=== PATIENT | male | born 1980 ===

== ENCOUNTER → 2020-08-24 07:41 | Outpatient (BNVA) | payer SELFPAY | PROVIDERS: Visit Provider Internal Medicine | DX: Z76.89 Persons encountering health services in other specified circumstances (principal) ==

== ENCOUNTER 2022-09-16 09:29 | Outpatient (REF) | payer OTHER, SELFPAY ==
--- NOTE | ~2022-09-16 | XR_ITS ---
EXAMINATION: XR ELBOW, LEFT CLINICAL INFORMATION: Sprain COMPARISON: None TECHNIQUE: AP, lateral, and oblique views of the left elbow. FINDINGS: Small osteophyte at the triceps tendon insertion to the olecranon. Small soft tissue calcification adjacent to the lateral humeral epicondyle. The bones and soft tissues are otherwise normal. No fracture or joint effusion. Alignment is anatomic. Joint spaces are maintained. XR/XR elbow LT min 3V IMPRESSION: No acute fracture or dislocation. Small osteophyte at the triceps tendon insertion to the olecranon and soft tissue calcification adjacent to the lateral humeral epicondyle..
== END 2022-09-16 09:30 | disposition home or self-care (01) ==
LOC: HO.HMGCX 09:29
PROVIDERS: PCP Physician Assistant; Visit Provider Internal Medicine
DX: S53.402A Unspecified sprain of left elbow, initial encounter (principal); X58.XXXA Exposure to other specified factors, initial encounter; Y93.9 Activity, unspecified; Y92.9 Unspecified place or not applicable; Y99.8 Other external cause status
CPT/HCPCS: 73080

== ENCOUNTER 2023-07-27 10:41 | Outpatient (AMB) | payer OTHER, SELFPAY ==
[2023-07-27 10:57] VITALS: BP 132/78; PULSE 66; O2SAT 96; BMI 38.0
--- NOTE | 2023-07-27 10:57 | MHC.PC.OV ---
Vital Signs 07/27/23 10:57 Height 6 ft Weight 280 lb 5 oz BMI 38.0 BP 132/78 Blood Pressure Location Lt brachial Position Sitting Pulse 66 Pulse Source Pulse Oximeter Pulse Oximetry (%) 96 Oxygen Delivery Method Room Air Intake Visit Reasons: Med Review Intake Note: Pt is here for med review and pt want to discuss elbow issues. Lead Javascript Developer Required: No Accompanied by: Self / Same As Patient Allergies Sulfa (Sulfonamide Antibiotics) [SULFA (SULFONAMIDE ANTIBIOTICS)] Allergy (Unknown, Verified 07/27/23 11:22) UNKNOWN, hives Medication List - Last Reconciled 07/27/23 by Ben Ashley PA-C blood pressure test kit-large As directed meloxicam 15 mg PO DAILY pantoprazole 40 mg PO DAILY Tobacco use date assessed: 07/27/23 Dental Screening Dental Screen Date: 07/27/23 Did you have a dental visit in the last 12 months?: Yes Did you have a dental problem in the last 6 months where you did not have access to dental care?: No Was dental information given to patient?: Patient has dentist HPI Med Review HPI Details Patient is a 43 male here today for follow-up visit. Patient has a past medical history significant for GERD, hypertension, obesity. Has been having issues with his elbows and has been seen by urgent care and gotten x-rays without any significant findings in his elbow x-rays. 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 He has proceeded to follow-up with orthopedics and has gotten a cortisone injection which has reduced his pain in his elbow significantly. .. Obesity: Has noticed significant amount weight gain since last office visit. Reorts this is due to wearing his steel-toed boots today. He reports he has been watching his diet and has actually lost weight since last office visit. He reports his home weight is 237 lb .. GERD: Continues on pantoprazole 40 mg needs a refill. He has changed his diet significantly and wonders if he can reduce his dose of this medication and try to get off of PPI therapy. [facility] Medical History (Updated 07/28/23 @ 07:31 by Ben Ashley PA-C) Sprain of left elbow Surgical History H/O vasectomy Family History Sister Glioblastoma Social History Housing: House Alcohol intake: current Alcohol intake frequency: a few times a week Alcohol type: beer and wine Patient Tobacco Use Status: Never used Tobacco Tobacco use type: Cigarette e-Cigarette/Vaping Use: Never Used Second Hand Smoke Exposure: No service: No Current occupational status: employed Current occupation: [employer] Cognitive needs: No Hearing needs: No Vision needs: No Questionnaire PHQ-9 Over the last 2 weeks, how often have you been bothered by any of the following problems? 1. Little interest or pleasure in doing things: not at all 2. Feeling down, depressed, or hopeless: not at all 3. Trouble falling or staying asleep, or sleeping too much: not at all 4. Feeling tired or having little energy: not at all 5. Poor appetite or overeating: not at all 6. Feeling bad about yourself - or that you are a failure or have let yourself or your family down: not at all 7. Trouble concentrating on things, such as reading the newspaper or watching television: not at all 8. Moving or speaking so slowly that other people could have noticed. Or the opposite - being so fidgety or restless that you have been moving around a lot more than usual: not at all 9. Thoughts that you would be better off or of hurting yourself in some way: not at all Total score: 0 Depression Screening Interpretation: Negative Depression Screening Done: Yes 38136 - PHQ-9 Billing: Yes Source: Developed by Drs. Felipe Coleman, Clarissa Palacios, Celestino Michael and colleagues, with an educational mary from [employer]. Thrive Questionnaire Date Thrive assessed: 07/27/23 I am a: Patient What is your living situation today?: I have a steady place to live Within the past 12 months, did the food you bought not last and you didn't have the money to get more?: Never true Within the past 12 months, did you worry whether your food would run out before you got money to buy more?: Never true Do you have trouble paying for medicines?: No Do you have trouble getting transportation to medical appointments?: No Do you have trouble paying your heating and electricity bill?: No Do you have trouble taking care of your child, family member or friend?: No Do you have trouble with day-to-day activities such as bathing, preparing meals, shopping, managing finances, etc.?: No Are you currently unemployed and looking for a job?: No Are you interested in more education?: No Please select the resources that you would like help with: None Currently or been in a relationship where the following occur: no concerns reported AUDIT C Alcohol Use Questionnaire (AUDIT-C) 1. How often do you have a drink containing alcohol?: Monthly or less 2. How many drinks containing alcohol do you have on a typical day when you are drinking?: 3 or 4 3. How often do you have six or more drinks on one occasion?: Never Total Score: 2 Score Reviewed/Action Taken: Yes DEYVI-7 AMB Questionnaire DEYVI-7 Date DEYVI - 7 assessed: 07/27/23 Feeling nervous, anxious, or on edge: 0 = Not at all Not being able to stop or control worryin = Not at all Worrying too much about different things: 0 = Not at all Trouble relaxin = Not at all Being so restless that it is hard to sit still: 0 = Not at all Becoming easily annoyed or irritable: 0 = Not at all Feeling afraid as if something awful might happen: 0 = Not at all Total DEYVI-7 score (0-4 normal; 5-9 mild; 10-14 moderate; 15-21 severe): 0 Source: Developed by Drs. Felipe Coleman, Clarissa Palacios, Celestino Michael and colleagues, with an educational mary from [employer]. DEYVI-7 Assessment Billing DEYVI-7 Assessment Tool: DEYVI-7 Assessment 87804 Review of Systems Const Denies headache(s) Eyes Denies loss of vision ENT Denies vertigo, Denies dizziness, Denies headache(s) and Denies sore throat Card Denies chest pain, Denies leg edema and Denies lightheadedness Resp Denies cough, Denies hemoptysis and Denies wheezing GI Denies abdominal pain, Denies melena, Denies constipation, Denies diarrhea and Denies vomiting Denies dysuria, Denies urinary frequency and Denies urinary urgency Musc Denies arthralgias, Denies joint swelling, Denies numbness and Denies tingling Neuro Denies Abnormal speech present, Denies behavioral changes, Denies vertigo, Denies dizziness, Denies headache(s), Denies loss of vision, Denies memory loss, Denies numbness and Denies tingling Psych Denies anxiety, Denies behavioral changes, Denies depression, Denies memory loss and Denies panic attacks Aron/Lymph Denies easy bleeding and Denies easy bruising Aller/Immun Denies wheezing Physical exam (Primary Care) Vital Signs: Last Vital Signs Pulse 66 07/27/23 10:57 BP 132/78 07/27/23 10:57 Pulse Ox 96 07/27/23 10:57 Oxygen Delivery Method Room Air 07/27/23 10:57 BMI result Body Mass Index 38.0 BMI Assessment/Plan discussion: High Tobacco/Smoking Status: Tobacco use Status Tobacco use date assessed 07/27/23 07/27/23 11:21 Patient Tobacco Use Status Never used Tobacco 07/27/23 11:05 Tobacco use type Cigarette 07/27/23 11:05 e-Cigarette/Vaping Use Never Used 07/27/23 11:05 PHQ-9: PHQ-9 Score PHQ-9: Total score 0 07/27/23 11:30 Depression Screening Interpretation: Negative Thrive Assessment: Date of Thrive Assessment Date Thrive assessed 07/27/23 07/27/23 11:21 Currently or been in a relationship where the following occur: no concerns reported Const Other: Obese General: healthy appearing, no acute distress, alert and awake Nutritional Appearance: well nourished Orientation/consciousness: oriented to person, oriented to place and oriented to time [facility] Ears: TM's normal bilaterally General nose exam: Normal nasal mucous membranes and turbinates present Eyes Conjunctivae: conjunctivae normal Sclerae: sclerae normal Pupils: Equal, round and reactive pupils present Neck Neck: Yes no lymphadenopathy and Yes no JVD Thyroid: Thyroid normal Carotids: no bruits Resp Effort & Inspection: normal respiratory effort and not tachypneic Auscultation: no crackles, no rales, no rhonchi and no wheezes Cardio Rate: regular rate Rhythm: regular rhythm Heart sounds: no murmurs and normal S1 and S2 GI Palpation (GI): Soft to palpation, nontender, no hepatomegaly and no splenomegaly Auscultation: normal bowel sounds Skin General skin exam: no rashes or lesions noted and dry skin Neuro General: oriented to person, oriented to place and oriented to time Cranial nerves: Yes Equal, round and reactive pupils present Speech: No Abnormal speech present Gait exam (Neuro): Normal gait present Motor exam (neuro): no tremor noted Extrem Other: FULL RANGE OF MOTION OF THE LEFT ELBOW, OCCASIONALLY DOES HAVE CREPITUS WITH FLEXION OF THE ELBOW. Right upper extremity: full ROM Left upper extremity: full ROM Right lower extremity: full ROM; no edema Left lower extremity: full ROM; no edema Psych Mental Status: mental status grossly normal Speech and movement: Normal speech and movement present Affect: normal affect Attitude: cooperative Thought process: Normal thought process present Assessment and Plan Assessment & Plan (1) Tendinitis: Code(s): M77.9 - Enthesopathy, unspecified Plan: Patient's signs and symptoms are most consistent with a tendinitis of the left elbow. Has followed up with Orthopedics and received a cortisone injection which significantly reduces pain. 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 (2) GERD (gastroesophageal reflux disease): Code(s): K21.9 - Gastro-esophageal reflux disease without esophagitis Qualifiers: Esophagitis presence: without esophagitis Qualified Code(s): K21.9 - Gastro-esophageal reflux disease without esophagitis Plan: As per HPI he is interested in reducing his dose of PPI therapy and eventually getting off of this medication. We did discuss the long-term affects of chronic PPI use. Would like to continue to watch his diet to control his GERD symptoms. (3) HTN (hypertension): Code(s): I10 - Essential (primary) hypertension Qualifiers: Hypertension type: primary hypertension Qualified Code(s): I10 - Essential (primary) hypertension Plan: Patient has a history of hypertension though has been able to manage with lifestyle. Today's blood pressure acceptable in office. Will continue to monitor blood pressure with goal blood pressure to remain below 140/90 (4) Obese: Code(s): E66.9 - Obesity, unspecified Qualifiers: Obesity type: due to excess calories Obesity classification: adult class 1 (BMI 30 - 34.9) Serious obesity comorbidity presence: without serious comorbidity Body mass index: BMI 32.0-32.9 Qualified Code(s): E66.09 - Other obesity due to excess calories; Z68.32 - Body mass index [BMI] 32.0-32.9, adult Plan: Patient does understand his BMI is over 30 will continue working on being more physically active and adapting to better eating habits to reduce his weight. Orders: Orders Microalbumin, Random (w Creat) 07/27/23 I10 - Essential (primary) hypertension Comprehensive [place]. Panel Fast 07/27/23 Z13.1 - Encounter for screening for diabetes mellitus Medications: New pantoprazole 20 mg PO DAILY 90 days 90 tabs 1RF K21.9 - Gastro-esophageal reflux disease without esophagitis Discontinued meloxicam Discontinued Reason: Doctor's Order 15 mg PO DAILY 14 tabs 0RF pantoprazole Discontinued Reason: Doctor's Order 40 mg PO DAILY 90 tabs 2RF K21.9 - Gastro-esophageal reflux disease without esophagitis Coding Level of Care Code Est Pt Level 4 (81045) Diagnoses Tendinitis M77.9 Gastroesophageal reflux disease without esophagitis K21.9 Esophagitis presence: without esophagitis Primary hypertension I10 Hypertension type: primary hypertension Class 1 obesity due to excess calories without serious comorbidity with body mass index (BMI) of 32.0 to 32.9 in adult E66.09; Z68.32 Obesity type: due to excess calories Obesity classification: adult class 1 (BMI 30 - 34.9) Serious obesity comorbidity presence: without serious comorbidity Body mass index: BMI 32.0-32.9 Additional Codes DEYVI-7 Assessment Billing - DEYVI-7 Assessment Tool: DEYVI-7 Assessment 41408 ([id number])
== END 2023-07-27 11:40 | disposition home or self-care (01) ==
PROVIDERS: PCP Physician Assistant; Visit Provider Physician Assistant
DX: M77.9 Enthesopathy, unspecified (principal); K21.9 Gastro-esophageal reflux disease without esophagitis; I10 Essential (primary) hypertension; E66.09 Other obesity due to excess calories; Z68.32 Body mass index [BMI] 32.0-32.9, adult
CPT/HCPCS: 99214

== ENCOUNTER 2023-07-28 07:24 | Outpatient (REF) | payer OTHER, SELFPAY | END 2023-07-28 07:25 | disposition home or self-care (01) | LOC: HO.LAB 07:24 | PROVIDERS: PCP Physician Assistant; Visit Provider Physician Assistant | DX: Z13.89 Encounter for screening for other disorder (principal) ==

== ENCOUNTER 2023-10-02 06:17 | Outpatient (REF) | payer OTHER, SELFPAY ==
[2023-10-02 07:37] LABS: Alanine Aminotransferase 78 U/L (0-40); Albumin Level 4.6 g/dL (3.5-5.0); Alkaline Phosphatase 51 U/L (39-117); Anion Gap 12 (12-20); Aspartate Amino Transferase 44 U/L (5-37); Bilirubin Total 0.6 mg/dL (0.0-1.0); Blood Urea Nitrogen 21 mg/dL (9-16); Calcium 10.1 mg/dL (8.4-10.2); Carbon Dioxide 26 mmol/L (22-29); Chloride 107 mmol/L (96-108); Estimated Glomerular Filt Rate > 60; Glucose Fasting 99 mg/dL (60-99); Potassium 4.4 mmol/L (3.3-5.1); Sodium 141 mmol/L (135-145)
[2023-10-02 09:26] LABS: Creatinine Urine 198.78 mg/dL; Microalbum/Creatinine Ratio Ur 6.5 ug/mg cr (<30)
== END 2023-10-02 06:18 | disposition home or self-care (01) ==
LOC: HO.LAB 06:17
PROVIDERS: PCP Physician Assistant; Visit Provider Physician Assistant
DX: Z13.1 Encounter for screening for diabetes mellitus (principal); I10 Essential (primary) hypertension
CPT/HCPCS: 36415; 80053; 82043; 82570

== ENCOUNTER 2023-10-16 14:50 | Outpatient (REF) | payer OTHER, SELFPAY ==
--- NOTE | ~2023-10-16 | US_ITS ---
EXAMINATION: US ABDOMEN LIMITED CLINICAL INFORMATION: Abnormal levels of other serum enzymes. COMPARISON: Ultrasound abdomen complete 08/27/2015. TECHNIQUE: Real-time imaging of the right upper quadrant abdominal viscera. FINDINGS: PANCREAS: Limited visualization. LIVER: The liver is enlarged. The liver contour is normal. There is diffuse increased liver parenchymal echogenicity, consistent with hepatic steatosis. No definite focal lesion is seen, but evaluation is limited due to poor sound beam penetration through the coarse echogenic liver parenchyma. There is no intrahepatic biliary duct dilatation seen. GALLBLADDER: The gallbladder is physiologically distended without evidence of stones, sludge, polyps, wall thickening or pericholecystic fluid. COMMON BILE DUCT: Normal in caliber measuring 0.4 cm in diameter. RIGHT KIDNEY: No hydronephrosis. No renal calculi or focal parenchymal lesions. The kidney measures 12.1 cm in maximum dimension. FREE FLUID: None. US/US abdomen limited IMPRESSION: Hepatomegaly and hepatic steatosis.
== END 2023-10-16 14:51 | disposition home or self-care (01) ==
LOC: HO.US 14:50
PROVIDERS: PCP Physician Assistant; Visit Provider Physician Assistant
DX: R74.8 Abnormal levels of other serum enzymes (principal)
CPT/HCPCS: 76705

== ENCOUNTER 2023-11-02 15:02 | Outpatient (AMB) | payer OTHER, SELFPAY ==
[2023-11-02 15:06] VITALS: BP 152/88; PULSE 55; O2SAT 98; BMI 33.2
--- NOTE | 2023-11-02 15:06 | MHC.PC.OV ---
Vital Signs 11/02/23 15:06 Height 6 ft Weight 245 lb BMI 33.2 BP 152/88 H Blood Pressure Location Lt brachial Position Sitting Pulse 55 Pulse Source Pulse Oximeter Pulse Oximetry (%) 98 Oxygen Delivery Method Room Air Intake Visit Reasons: pe Intake Note: Patient is here today for a physical. Reel Slitter Required: No Accompanied by: Self / Same As Patient Allergies Sulfa (Sulfonamide Antibiotics) [SULFA (SULFONAMIDE ANTIBIOTICS)] Allergy (Unknown, Verified 11/02/23 15:34) UNKNOWN, hives Medication List - Last Reconciled 11/02/23 by Ben Ashley PA-C blood pressure test kit-large As directed pantoprazole 20 mg PO DAILY 90 days Tobacco use date assessed: 11/02/23 Dental Screening Dental Screen Date: 11/02/23 Did you have a dental visit in the last 12 months?: Yes Did you have a dental problem in the last 6 months where you did not have access to dental care?: No Was dental information given to patient?: Patient has dentist HPI pe HPI Details Patient is a 43 male here today for a routine annual physical. Patient has a past medical history significant for GERD, hypertension, obesity. .. Obesity: BMI remains above 30, did note elevated liver enzymes does admit to some increased alcohol intake over the last few years. He has started a new diet and has lost some weight since last office visit. Recent ultrasound of abdomen does show signs symptoms consistent with fatty liver. .. GERD: Continues on pantoprazole 20 mg. He has changed his diet significantly and wonders if he can reduce his dose of this medication and try to get off of PPI therapy. Laboratory Tests 10/02/23 10/02/23 06:34 06:36 BUN 21 H AST 44 H ALT 78 H Urine Microalbumin 13.0 PFSH Medical History Sprain of left elbow Surgical History H/O vasectomy Family History Sister Glioblastoma Social History (Updated 11/02/23 @ 15:42 by Ben Ashley PA-C) Housing: House Alcohol intake: current Alcohol intake frequency: a few times a month Alcohol type: beer and wine Patient Tobacco Use Status: Never used Tobacco Tobacco use type: Cigarette e-Cigarette/Vaping Use: Never Used Second Hand Smoke Exposure: No service: No Current occupational status: employed Current occupation: [employer] Cognitive needs: No Hearing needs: No Vision needs: No Questionnaire PHQ-9 Over the last 2 weeks, how often have you been bothered by any of the following problems? 1. Little interest or pleasure in doing things: not at all 2. Feeling down, depressed, or hopeless: not at all 3. Trouble falling or staying asleep, or sleeping too much: not at all 4. Feeling tired or having little energy: not at all 5. Poor appetite or overeating: not at all 6. Feeling bad about yourself - or that you are a failure or have let yourself or your family down: not at all 7. Trouble concentrating on things, such as reading the newspaper or watching television: not at all 8. Moving or speaking so slowly that other people could have noticed. Or the opposite - being so fidgety or restless that you have been moving around a lot more than usual: not at all 9. Thoughts that you would be better off or of hurting yourself in some way: not at all Total score: 0 Depression Screening Interpretation: Negative Depression Screening Done: Yes 00467 - PHQ-9 Billing: Yes Source: Developed by Drs. Felipe Coleman, Clarissa Palacios, Celestino Michael and colleagues, with an educational mary from [employer]. Thrive Questionnaire Date Thrive assessed: 11/02/23 I am a: Patient What is your living situation today?: I have a steady place to live Within the past 12 months, did the food you bought not last and you didn't have the money to get more?: Never true Within the past 12 months, did you worry whether your food would run out before you got money to buy more?: Never true Do you have trouble paying for medicines?: No Do you have trouble getting transportation to medical appointments?: No Do you have trouble paying your heating and electricity bill?: No Do you have trouble taking care of your child, family member or friend?: No Do you have trouble with day-to-day activities such as bathing, preparing meals, shopping, managing finances, etc.?: No Are you currently unemployed and looking for a job?: No Are you interested in more education?: No Please select the resources that you would like help with: None Currently or been in a relationship where the following occur: no concerns reported THRIVE Score: 0 AUDIT C Alcohol Use Questionnaire (AUDIT-C) 1. How often do you have a drink containing alcohol?: Monthly or less 2. How many drinks containing alcohol do you have on a typical day when you are drinking?: 3 or 4 3. How often do you have six or more drinks on one occasion?: Never Total Score: 2 Score Reviewed/Action Taken: Yes DEYVI-7 AMB Questionnaire DEYVI-7 Date DEYVI - 7 assessed: 11/02/23 Feeling nervous, anxious, or on edge: 0 = Not at all Not being able to stop or control worryin = Not at all Worrying too much about different things: 0 = Not at all Trouble relaxin = Not at all Being so restless that it is hard to sit still: 0 = Not at all Becoming easily annoyed or irritable: 0 = Not at all Feeling afraid as if something awful might happen: 0 = Not at all Total DEYVI-7 score (0-4 normal; 5-9 mild; 10-14 moderate; 15-21 severe): 0 Source: Developed by Drs. Felipe Coleman, Clarissa Palacios, Celestino Michael and colleagues, with an educational mary from [employer]. DEYVI-7 Assessment Billing DEYVI-7 Assessment Tool: DEYVI-7 Assessment 39203 Review of Systems Const Denies body aches, Denies chills, Denies excessive sweating, Denies fatigue, Denies fever(s) and Denies headache(s) Eyes Denies blurry vision ENT Denies dysphagia, Denies vertigo, Denies dizziness, Denies headache(s), Denies hearing loss and Denies tinnitus Card Denies chest pain, Denies chest pain with activity, Denies syncope, Denies irregular heart rhythm and Denies dyspnea Resp Denies chest congestion, Denies cough, Denies hemoptysis, Denies dyspnea and Denies wheezing GI Denies abdominal pain, Denies melena, Denies hematochezia, Denies coffee ground emesis, Denies dysphagia, Denies diarrhea, Denies nausea and Denies vomiting Denies difficulty urinating, Denies dysuria, Denies urinary frequency, Denies urinary hesitancy and Denies urinary urgency Musc Denies arthralgias, Denies limited range of motion, Denies muscle cramps and Denies muscle weakness Skin/Breast Denies rash and Denies skin ulcer Neuro Denies Abnormal speech present, Denies confusion, Denies vertigo, Denies dizziness, Denies syncope, Denies headache(s), Denies memory loss and Denies seizure-like activity Psych Denies anxiety, Denies confusion, Denies depression, Denies memory loss, Denies panic attacks and Denies paranoia Endo Denies excessive sweating, Denies fatigue, Denies flushing, Denies polydipsia and Denies polyuria Aller/Immun Denies wheezing Physical exam (Primary Care) Vital Signs: Last Vital Signs Pulse 55 11/02/23 15:06 BP 152/88 H 11/02/23 15:06 Pulse Ox 98 11/02/23 15:06 Oxygen Delivery Method Room Air 11/02/23 15:06 BMI result Body Mass Index 33.2 BMI Assessment/Plan discussion: High Tobacco/Smoking Status: Tobacco use Status Tobacco use date assessed 11/02/23 11/02/23 15:17 Patient Tobacco Use Status Never used Tobacco 11/02/23 15:42 Tobacco use type Cigarette 11/02/23 15:42 e-Cigarette/Vaping Use Never Used 11/02/23 15:42 PHQ-9: PHQ-9 Score PHQ-9: Total score 0 11/02/23 15:38 Depression Screening Interpretation: Negative Thrive Assessment: Date of Thrive Assessment Date Thrive assessed 11/02/23 11/02/23 15:17 Currently or been in a relationship where the following occur: no concerns reported Const Other: Obese General: cooperative, comfortable, no acute distress, alert and awake; No confusion Orientation/consciousness: oriented to person, oriented to place, patient oriented x3 and No confusion HENMT Head: Yes normocephalic Ears: external ears normal and TM's normal bilaterally Face and sinus: No sinus tenderness Mouth: Normal oral and palatal mucosa present and tongue normal Teeth and gingiva: dentition normal and gingiva normal Throat: Yes posterior oropharynx normal, Yes tonsils normal and Yes uvula midline Eyes Conjunctivae: conjunctivae normal Sclerae: sclerae normal Pupils: Equal, round and reactive pupils present EOM: EOMs intact bilaterally Direct Ophthalmoscopy: No no photophobia Neck Neck: Yes no lymphadenopathy, No tender and Yes no JVD Thyroid: Thyroid normal Carotids: no bruits Chest Chest palpation & inspection: no tenderness Resp Effort & Inspection: normal respiratory effort, no audible wheezes, not labored and no stridor Auscultation: no crackles, no rales, no rhonchi and no wheezes Cardio Jugular venous distension: no JVD Rate: regular rate, not bradycardic and not tachycardic Rhythm: regular rhythm Bruits: no carotid bruits Peripheral pulses: Peripheral pulses 2+ throughout GI Inspection: Yes normal to inspection, No abdominal wall ecchymosis and No visible herniation Palpation (GI): Soft to palpation, nontender, no guarding, not rigid and No hepatosplenomegaly present Auscultation: normoactive bowel sounds General: Yes no CVA tenderness Back/Spine/Pelvis Back: no CVA tenderness and No back tenderness Cervical Spine: cervical ROM normal Thoracic/Lumbar Spine: thoracic and lumbar spine normal to inspection, straight leg raise negative bilaterally, No thoraco-lumbar ROM limited and No lumbar spinal tenderness Skin Lesions: no lesions Rashes: no rashes Wounds: no wounds Neuro General: oriented to person, oriented to place, patient oriented x3, CN's II-XI intact bilaterally and No confusion Cranial nerves: Yes Equal, round and reactive pupils present and Yes Normal accommodation reflex present Cognition (Neuro): normal cognition Speech: No Abnormal speech present Gait exam (Neuro): Normal gait present Motor exam (neuro): 5/5 motor strength present throughout Extrem Right upper extremity: full ROM; no cyanosis Left upper extremity: full ROM; no cyanosis Right lower extremity: no edema Left lower extremity: no edema Psych Appearance: grossly normal Mental Status: mental status grossly normal Affect: normal affect Attitude: cooperative Thought process: Normal thought process present Assessment and Plan Assessment & Plan (1) Annual physical exam: Code(s): Z00.00 - Encounter for general adult medical examination without abnormal findings (2) GERD (gastroesophageal reflux disease): Code(s): K21.9 - Gastro-esophageal reflux disease without esophagitis Qualifiers: Esophagitis presence: without esophagitis Qualified Code(s): K21.9 - Gastro-esophageal reflux disease without esophagitis Plan: Patient continues on daily use of pantoprazole, he denies any GERD symptoms. (3) Elevated blood pressure reading: Code(s): R03.0 - Elevated blood-pressure reading, without diagnosis of hypertension Plan: Noted elevated blood pressure reading today in office. Will consider starting blood pressure medication. Advised to monitor blood pressure when possible. Will commence lifestyle modifications to help lose weight and anticipate lower his blood pressure. (4) Obese: Code(s): E66.9 - Obesity, unspecified Qualifiers: Body mass index: BMI 32.0-32.9 Obesity classification: adult class 1 (BMI 30 - 34.9) Obesity type: due to excess calories Serious obesity comorbidity presence: without serious comorbidity Qualified Code(s): E66.09 - Other obesity due to excess calories; Z68.32 - Body mass index [BMI] 32.0-32.9, adult Plan: Patient does understand his BMI is over 30 and has been working on dietary modifications to reduce his weight. (5) Nonalcoholic fatty liver disease: Code(s): K76.0 - Fatty (change of) liver, not elsewhere classified Plan: Recent abdominal ultrasound showing consistent evidence fatty liver disease. Does elevated liver enzymes on most recent labs. He will implement dietary modifications and increase his physical activity to lose weight. Will recheck his liver enzymes Orders: Orders Liver Panel 8 Weeks R74.8 - Abnormal levels of other serum enzymes Comprehensive [place]. Panel Fast 11 Months Z13.1 - Encounter for screening for diabetes mellitus Complete Blood Count no Diff 11 Months K21.9 - Gastro-esophageal reflux disease without esophagitis Coding Level of Care Code Est Pt Prev Care 40-64y(93960) Diagnoses Annual physical exam Z00.00 Gastroesophageal reflux disease without esophagitis K21.9 Esophagitis presence: without esophagitis Elevated blood pressure reading R03.0 Class 1 obesity due to excess calories without serious comorbidity with body mass index (BMI) of 32.0 to 32.9 in adult E66.09; Z68.32 Body mass index: BMI 32.0-32.9 Obesity classification: adult class 1 (BMI 30 - 34.9) Obesity type: due to excess calories Serious obesity comorbidity presence: without serious comorbidity Nonalcoholic fatty liver disease K76.0 Additional Codes DEYVI-7 Assessment Billing - DEYVI-7 Assessment Tool: DEYVI-7 Assessment 06021 ([id number])
== END 2023-11-02 15:55 | disposition home or self-care (01) ==
PROVIDERS: PCP Physician Assistant; Visit Provider Physician Assistant
DX: Z00.00 Encounter for general adult medical examination without abnormal findings (principal); K21.9 Gastro-esophageal reflux disease without esophagitis; R03.0 Elevated blood-pressure reading, without diagnosis of hypertension; E66.09 Other obesity due to excess calories; Z68.32 Body mass index [BMI] 32.0-32.9, adult; K76.0 Fatty (change of) liver, not elsewhere classified
CPT/HCPCS: 99396

== ENCOUNTER 2024-03-16 06:33 | Outpatient (REF) | payer OTHER, SELFPAY ==
[2024-03-16 07:50] LABS: Alanine Aminotransferase 39 U/L (0-40); Albumin Level 4.6 g/dL (3.5-5.0); Alkaline Phosphatase 48 U/L (39-117); Aspartate Amino Transferase 31 U/L (5-37); Bilirubin Direct 0.2 mg/dL (0.0-0.5); Bilirubin Total 0.7 mg/dL (0.0-1.0); Total Protein 7.8 g/dL (6.5-8.0)
== END 2024-03-16 06:34 | disposition home or self-care (01) ==
LOC: HO.LAB 06:33
PROVIDERS: PCP Physician Assistant; Visit Provider Physician Assistant
DX: R74.8 Abnormal levels of other serum enzymes (principal)
CPT/HCPCS: 36415; 80076

== ENCOUNTER 2024-03-20 18:17 | Emergency (ER) | payer OTHER, SELFPAY ==
[2024-03-20 18:25] VITALS: BP 150/81; PULSE 68; RESP 18; TEMP 36.8; O2SAT 98; BMI 32.3
--- NOTE | 2024-03-20 19:54 | ED_ITS ---
HPI - Burn/Smoke Inhalation General Chief complaint: Burn/Smoke Inhalation Stated complaint: burned left hand on hot plate Time Seen by Provider: 03/20/24 19:46 Source: patient Mode of arrival: ambulatory Limitations: no limitations History of Present Illness HPI Narrative: 44 yo male healthy, right hand dominant here with complaints of burn to left hand (1st-3rd digits). Patient reports that he was cooking on the grill any had food in a metal pole and a when he grabbed it he noticed it was very hot causing a burn to his left hand. Applied aloe and took ibuprofen but came to the emergency room. Denies numbness, tingling, redness, fevers, chills. Related Data Previous Rx's ?Medication ?Instructions ?Recorded blood pressure test kit-large #1 ea 09/24/21 pantoprazole 20 mg tablet,delayed 20 mg PO DAILY 90 days #90 tabs 10/09/23 release azithromycin 250 mg tablet See Rx Instructions PO .COMPLEX #6 12/15/23 tabs oxycodone 5 mg tablet 5 mg PO Q8H PRN pain #6 tabs 03/20/24 Allergies Allergy/AdvReac Type Severity Reaction Status Date / Time Sulfa (Sulfonamide Allergy Unknown UNKNOWN, Verified 03/20/24 18:27 Antibiotics) hives [SULFA (SULFONAMIDE ANTIBIOTICS)] Review of Systems Review of Systems: Yes all other systems are reviewed and are negative Constitutional: Constitutional: Reports no additional constitutional complaints, Denies body ache(s), Denies chills, Denies fever(s), Denies headache(s) and Denies weakness Eyes: Eyes: Reports no additional eye complaints and Denies change in vision ENT: Reports system reviewed and no additional complaints, except as documented, Denies dizziness, Denies headache(s), Denies nasal congestion, Denies nasal discharge and Denies neck pain Cardiovascular: Cardiovascular: Reports no additional cardiovascular complaints, Denies chest pain, Denies leg edema and Denies dyspnea Respiratory: Respiratory: Reports no additional respiratory complaints, Denies cough and Denies dyspnea Gastrointestinal: Gastrointestinal: Reports no additional gastrointestinal complaints, Denies abdominal pain, Denies diarrhea, Denies nausea and Denies vomiting Genitourinary: Genitourinary: Denies urinary incontinence Musculoskeletal: Musculoskeletal: Reports no additional musculoskeletal complaints, Denies back pain, Denies arthralgias, Denies joint swelling, Denies neck pain, Denies numbness and Denies tingling Integumentary/Breasts: Skin/Breast: Reports system reviewed and no additional complaints, except as docu and Denies rash Neurologic: Reports system reviewed and no additional complaints, except as documented, Denies Abnormal speech present, Denies dizziness, Denies headache(s), Denies numbness, Denies tingling and Denies weakness PMF Past Medical History Attestation statement: The following information was validated with the patient. Source: old records reviewed and nursing notes reviewed Medical History Sprain of left elbow Surgical History H/O vasectomy Family History Family History Sister Glioblastoma Social History Social History Housing: House Alcohol intake: current Alcohol intake frequency: a few times a month Alcohol type: beer and wine Patient Tobacco Use Status: Never used Tobacco Tobacco use type: Cigarette e-Cigarette/Vaping Use: Never Used Second Hand Smoke Exposure: No Advance Directives: No Advance Directives Information Provided: Yes Do you have a plan to hurt others: No Plan service: No Current occupational status: employed Current occupation: [employer] Cognitive needs: No Hearing needs: No Vision needs: No Physical Exam Vital Signs: Vital Signs: Last Vital Signs Temp 98.2 F 03/20/24 18:25 Pulse 68 03/20/24 18:25 Resp 18 03/20/24 18:25 BP 150/81 H 03/20/24 18:25 Pulse Ox 98 03/20/24 18:25 O2 Del Method Room Air 03/20/24 18:25 BMI result Body Mass Index 32.3 Const: General: cooperative, healthy appearing, comfortable and no acute distress Orientation/consciousness: patient oriented x3 Limitations: no limitations HEENT: Head: Yes normal to inspection Ears: hearing grossly normal bilaterally General nose exam: Normal external nose present Face and sinus: Yes normal facial exam Mouth: Normal oral and palatal mucosa present Throat: Yes posterior oropharynx normal Eyes: General: appearance normal, both eyes and all related structures Pupils: Equal, round and reactive pupils present Neck: Neck: Yes normal visual inspection Chest: Chest palpation & inspection: normal inspection of the chest Resp: Effort & Inspection: normal respiratory effort Auscultation: clear to auscultation bilaterally Cardio: Rate: regular rate Rhythm: regular rhythm Peripheral pulses: Peripheral pulses 2+ throughout GI: Inspection: Yes normal to inspection Palpation (GI): Soft to palpation and nontender Auscultation: normal bowel sounds Back/Spine/Pelvis: Thoracic/Lumbar Spine: thoracic and lumbar spine normal to inspection Skin: General skin exam: no rashes or lesions noted Neuro: General: patient oriented x3, no focal motor deficits and normal sensation to monofilament Cranial nerves: Yes Equal, round and reactive pupils present Cognition (Neuro): normal cognition Speech: No Abnormal speech present Gait exam (Neuro): Normal gait present Motor exam (neuro): 5/5 motor strength present throughout Extrem: Other: To the left 1st digit there is a 1cm partial thickness burn To the left 2nd/3rd digit there is a partial thickness burn that extends the length of both fingers on the volar aspect only FROM Normal sensation Medical Decision Making Medical Decision Making MDM Narrative: 44 yo male healthy, right hand dominant here with complaints of burn to left hand (1st-3rd digits). Patient reports that he was cooking on the grill any had food in a metal pole and a when he grabbed it he noticed it was very hot causing a burn to his left hand. Applied aloe and took ibuprofen but came to the emergency room. Denies numbness, tingling, redness, fevers, chills. To the left 1st digit there is a 1cm partial thickness burn To the left 2nd/3rd digit there is a partial thickness burn that extends the length of both fingers on the volar aspect only FROM Normal sensation Site was cleansed, topical bacitracin and dressings applied. Analgesia given Differential Diagnosis Differential Diagnoses: The differential diagnosis associated with the presentation includes burn Admission/Observation Consideration of admission/observation: Escalation of care including ad mission/observation considered burn is partial thickeness, not circumfential so I do not believe it requires transfer to burn center Prescription Management I considered prescription management with: Pain Medication and Antibiotic Discharge Plan Discharge Clinical Impression: Burn Patient Disposition: Home, Self-Care Instructions: Second Degree Burn (ED) Additional Instructions: Apply a topical antibiotic ointment and dressings once daily Return for signs of infection such as redness, drainage, swelling Take Motrin or Tylenol 1st for pain. If this does not help you may take the oxycodone Prescriptions: New oxycodone 5 mg tablet 5 mg PO Q8H PRN (Reason: pain) Qty: 6 0RF Rx Instructions: Partial Fill upon patient request. No Action pantoprazole 20 mg tablet,delayed release (DR/EC) 20 mg PO DAILY 90 Days Qty: 90 1RF azithromycin 250 mg tablet See Rx Instructions PO .COMPLEX Qty: 6 0RF Rx Instructions: For 250 mg dose pack: take 500 mg today (day 1), then 250 mg for 4 days (days 2-5) PO (DME) blood pressure test kit-large Kit See Rx Instructions .Route Qty: 1 0RF Rx Instructions: As directed Referrals: Ben Ashley PA-C [Primary Care Provider] - 1 week Print Language: Canadian
[2024-03-20] MEDS: oxyCODONE HCl Immed Release 5 MG TABLET PO (20:09)
[2024-03-20 20:43] VITALS: BP 150/81; PULSE 68; RESP 18; TEMP 36.8; O2SAT 98
== END 2024-03-20 20:43 | disposition home or self-care (01) ==
PROVIDERS: Emergency Provider Emergency Medicine; PCP Physician Assistant
DX: T23.202A Burn of second degree of left hand, unspecified site, initial encounter (principal); T31.0 Burns involving less than 10% of body surface; T59.811A Toxic effect of smoke, accidental (unintentional), initial encounter; M79.642 Pain in left hand; X15.2XXA Contact with hotplate, initial encounter; Y93.9 Activity, unspecified; Y92.9 Unspecified place or not applicable; Y99.8 Other external cause status
CPT/HCPCS: 16025; 99283; 99284

== ENCOUNTER → 2024-05-17 08:34 | Outpatient (BNVA) | payer SELFPAY | PROVIDERS: PCP Physician Assistant; Visit Provider Registered Nurse | DX: Z02.79 Encounter for issue of other medical certificate (principal) ==

== ENCOUNTER 2024-05-29 09:20 | Inpatient (IN) | payer BC, SELFPAY ==
--- NOTE | ~2024-05-29 | CT_ITS ---
EXAMINATION: CT ABDOMEN AND PELVIS WITHOUT CONTRAST CLINICAL INFORMATION: Abdominal pain. Concern for kidney stone. COMPARISON: Abdominal ultrasound of 10/16/2023 TECHNIQUE: Multidetector volumetric imaging was performed from the superior aspect of the liver through the pubic symphysis. Sagittal and coronal reformatted images were obtained on the technologist's workstation. This CT examination was performed using dose optimization techniques as appropriate, variously including the following: *Automated exposure control *Adjustment of mA and/or kV according to patient size (this includes techniques or standardized protocols for targeted exams where dose is matched to indication/reason for exam; i.e. extremities or head) *Use of iterative reconstruction technique DLP: 828 mGy-cm FINDINGS: LUNG BASES: The visualized lung bases are unremarkable. LIVER, GALLBLADDER, AND BILIARY TREE: The liver is normal in size and contour. Diffuse patchy low attenuation of hepatic parenchyma is noted suggesting hepatic steatosis. Within the limits of noncontrast study, no focal liver lesion is seen. No biliary ductal dilatation. No radiopaque filling defect is noted in the common bile duct. The gallbladder is unremarkable with no evidence of radiopaque gallstones, gallbladder wall thickening, or obvious pericholecystic inflammatory changes. PANCREAS: Unremarkable. SPLEEN: Unremarkable. ADRENAL GLANDS: Unremarkable. KIDNEYS AND URETERS: The kidneys are normal in size, shape, and attenuation. No hydronephrosis, hydroureter, or calculi seen. No perinephric stranding. BLADDER: Unremarkable. GASTROINTESTINAL TRACT: Moderate diverticulosis of sigmoid colon and mild diverticulosis of the remainder of the colon. Pericolonic fat stranding is noted around the proximal to mid segment of the sigmoid colon multiple extraluminal air foci are noted in the vicinity as well as extending more superiorly (series 3 images 83 through 69/109). No discrete abscess formation is noted at this time. Mild reactive colonic thickening in this region is suspected. Remainder of the colon is unremarkable without evidence of wall thickening or pericolonic fat stranding. An appendix is normal. No abnormal dilatation of the stomach and small bowel is noted. PERITONEAL CAVITY: No evidence of free intraperitoneal fluid. ABDOMINAL WALL: There is superior periumbilical fat-containing hernia measuring 3 cm in maximum dimension. LYMPH NODES: No evidence of pathologically enlarged lymph nodes. VASCULAR: The iliac vessels are normal in caliber. Mild scattered calcific atherosclerosis of the aortoiliac vessels. PELVIC VISCERA: Unremarkable. OSSEOUS STRUCTURES: No acute or suspicious osseous abnormality. CT/CT abdomen pelvis wo IV con IMPRESSION: 1. Findings consistent with acute sigmoid diverticulitis with perforation. No discrete abscess collection is noted at this time. 2. No evidence of radiopaque urinary tract calculi, hydroureteronephrosis or perinephric stranding. 3. Hepatic steatosis. Fleischner guidelines were followed. Electronically signed by: Jayne Esparza MD 05/29/2024 01:21 PM EDT
[2024-05-29 09:23] VITALS: BP 144/76; PULSE 80; RESP 18; TEMP 36.9; O2SAT 98; BMI 31.4
[2024-05-29 09:58] LABS: MANUAL DIFF FLAG NO
[2024-05-29 09:59] LABS: Appearance Urine Cloudy; Basophils Percent Auto 0.4 % (0-2); Color Urine Dark Yellow; Eosinophils Absolute Auto 0.1 X10*3/uL (0.0-0.4); Eosinophils Percent Auto 0.8 % (0-4); Glucose Urine UA Negative (Negative); Hematocrit 40.5 % (42.0-52.0); Hemoglobin 13.9 g/dl (14.0-18.0); Imm Gran Abs Auto 0.02 X10*3/uL (0.00-0.03); Imm Gran Pct Auto 0.3 % (0.0-0.4); Leukocyte Esterase Urine Trace (Negative); Lymphocytes Absolute Auto 1.8 X10*3/uL (1.2-4.9); Lymphocytes Percent Auto 22.3 % (20-40); Mean Corpuscular HGB Conc 34.3 g/dl (31.0-36.0); Mean Corpuscular Hemoglobin 30.6 pg (27.0-33.0); Mean Corpuscular Volume 89.2 fL (80.0-98.0); Mean Platelet Volume 9.5 fL (9.4-12.4); Monocytes Absolute Auto 0.8 X10*3/uL (0.1-1.2); Monocytes Percent Auto 10.6 % (2-11); Neutrophils Absolute Auto 5.2 x10*3/uL (2.0-8.3); Neutrophils Percent Auto 65.6 % (45-73); Nitrite Urine Negative (Negative); PH 5.5 (5.0-9.0); Platelet Count 213 X10*3/uL (160-400); Red Blood Count 4.54 X10*6/uL (4.60-5.80); Red Cell Distribution Width 12.1 % (11.0-16.0); Specific Gravity - Urine 1.025 (1.005-1.025); UMIC TRIGGER UACC YES; Urine Blood Moderate (2+) (Negative); Urine Ketones 15 mg/dL (Negative); Urine Protein 300 (3+) mg/dL (Neg-Trace); White Blood Count 7.9 X10*3/uL (4.8-10.8)
[2024-05-29 10:05] VITALS: BP 135/71; PULSE 68; RESP 16; O2SAT 98
[2024-05-29 10:13] LABS: Alanine Aminotransferase 37 U/L (0-40); Albumin Level 4.2 g/dL (3.5-5.0); Alkaline Phosphatase 53 U/L (39-117); Anion Gap 13 (12-20); Aspartate Amino Transferase 23 U/L (5-37); Bilirubin Direct 0.2 mg/dL (0.0-0.5); Bilirubin Total 0.6 mg/dL (0.0-1.0); Blood Urea Nitrogen 13 mg/dL (9-16); Calcium 9.7 mg/dL (8.4-10.2); Carbon Dioxide 24 mmol/L (22-29); Chloride 107 mmol/L (96-108); Estimated Glomerular Filt Rate > 60; Glucose Random 102 mg/dL (60-115); Lipase 34 U/L (8-78); Potassium 4.3 mmol/L (3.3-5.1); Sodium 140 mmol/L (135-145); Total Protein 7.7 g/dL (6.5-8.0)
[2024-05-29 10:14] LABS: Bacteria Urine None Seen (None Seen); Hyaline Casts Urine 0-2 /LPF (0-2); Squamous Epithelial Cell Urine 0-2 /HPF (0-2); WBC Urine 0-5 /HPF (0-5)
--- NOTE | 2024-05-29 11:27 | ED_ITS ---
HPI - General Adult General Chief complaint: Abdominal Pain Stated complaint: Abd pain Time Seen by Provider: 05/29/24 11:20 Source: patient Mode of arrival: ambulatory Limitations: no limitations History of Present Illness ED Provider: Rosalia Oneil PA-C HPI narrative: Patient is a 44 year old assigned male at with a history of HTN, GERD, and fatty liver presenting to the emergency department today with lower abdominal pain. Patient states that over the last 4 days he has had lower abdominal pain. Patient states that he thought he was possibly constipated and attempted to use some over the counter stool aides but it did not help the pain. Patient denies any dizziness, lightheadedness, nausea, vomiting, fever, chills, blurry vision, double vision, loss of vision, chest pain, difficulty breathing, shortness of breath, back pain, night sweats, pain with urination, increased urinary frequency, increased urinary urgency, blood in his urine or stool, syncope or a near syncopal episode, recent trauma or falls, bowel incontinence, bladder incontinence, or any other complaints at this time. Onset (ago): day(s) (4) Location: abdomen Relieving factors: none Exacerbating factors: none Associated symptoms: denies other symptoms Related Data Home Medications ?Medication ?Instructions ?Recorded ?Confirmed pantoprazole 20 mg tablet,delayed 20 mg PO DAILY@0630 05/29/24 release Previous Rx's ?Medication ?Instructions ?Recorded blood pressure test kit-large #1 ea 09/24/21 famotidine 20 mg tablet 20 mg PO BEDTIME 30 days #30 tabs 05/16/24 Allergies Allergy/AdvReac Type Severity Reaction Status Date / Time Sulfa (Sulfonamide Allergy Unknown UNKNOWN, Verified 05/29/24 09:23 Antibiotics) hives [SULFA (SULFONAMIDE ANTIBIOTICS)] Review of Systems 2 Constitutional: Constitutional: Reports no additional constitutional complaints, Denies chills, Denies fever(s) and Denies night sweats Eyes: Eyes: Reports no additional eye complaints, Denies blurry vision, Denies change in vision, Denies diplopia, Denies eye discharge, Denies loss of vision and Denies eye pain ENT: Denies dizziness Cardiovascular: Cardiovascular: Reports no additional cardiovascular complaints, Denies chest pain, Denies lightheadedness, Denies Loss of Consciousness and Denies dyspnea Respiratory: Respiratory: Reports no additional respiratory complaints and Denies dyspnea Gastrointestinal: Gastrointestinal: Reports no additional gastrointestinal complaints, Reports abdominal pain, Denies melena, Denies hematochezia, Denies change in bowel habits and Denies change in stool character Genitourinary: Genitourinary: Reports no additional male genitourinary complaints, Denies hematuria, Denies oliguria, Denies difficulty urinating, Denies dysuria, Denies urinary frequency, Denies urinary hesitancy, Denies urinary incontinence and Denies urinary urgency Musculoskeletal: Musculoskeletal: Reports no additional musculoskeletal complaints, Denies numbness and Denies tingling Neurologic: Denies dizziness, Denies loss of vision, Denies numbness and Denies tingling Psychiatric: Psychiatric: Reports no additional psychiatric complaints Endocrine: Endocrine: Reports no additional endocrine complaints Hematologic/Lymphatic: Hematologic/Lymphatic: Reports no additional hematologic/lymphatic complaints Allergic/Immunologic: Allergic/Immunologic: Reports no additional allergic/immunologic complaints PMFSH Past Medical History Attestation statement: The following information was validated with the patient. Source: old records reviewed and nursing notes reviewed Medical History Sprain of left elbow Surgical History H/O vasectomy Family History Family History Sister Glioblastoma Social History Social History Housing: House Alcohol intake: current Alcohol intake frequency: a few times a week Alcohol type: beer and wine Patient Tobacco Use Status: Never used Tobacco Tobacco use type: Cigarette Smoked in Last 30 Days: No e-Cigarette/Vaping Use: Never Used Second Hand Smoke Exposure: No Use of substances other than those prescribed or required for medical reasons: Yes Substance Use Type: Marijuana Advance Directives: No Advance Directives Information Provided: No Do you have a plan to hurt others: No Plan service: No Current occupational status: employed Current occupation: [employer] Cognitive needs: No Hearing needs: No Vision needs: No Physical Exam ED Vital Signs: Vital Signs - 24 hr 05/29/24 09:23 05/29/24 10:05 Temperature 98.5 F Pulse Rate 80 68 Respiratory Rate 18 16 Blood Pressure 144/76 H 135/71 Pulse Oximetry 98 98 Oxygen Delivery Method Room Air BMI result Body Mass Index 31.4 Const General: cooperative, no acute distress, alert and awake Nutritional Appearance: well nourished Orientation/consciousness: patient oriented x3 Limitations: no limitations HENMT Head: Yes normal to inspection and Yes atraumatic Ears: hearing grossly normal bilaterally and external ears normal General nose exam: Normal external nose present, no nasal discharge noted and no epistaxis Face and sinus: Yes normal facial exam, No abrasion and No laceration Mouth: Normal oral and palatal mucosa present, no drooling and no muffled voice Eyes General: appearance normal, both eyes and all related structures Periorbital: periorbital findings normal Eyelids: Yes eyelids normal Conjunctivae: conjunctivae normal Pupils: Equal, round and reactive pupils present EOM: EOMs intact bilaterally Neck Neck: Yes normal visual inspection, Yes full ROM and Yes no lymphadenopathy Chest Chest palpation & inspection: normal inspection of the chest Resp Effort & Inspection: normal respiratory effort and able to speak in complete sentences GI Inspection: Yes normal to inspection Palpation (GI): Soft to palpation, not firm, Tenderness to palpation present (GI) in the LLQ and in the RLQ, no guarding and not rigid Neuro General: patient oriented x3 and moves all extremities Cranial nerves: Yes Equal, round and reactive pupils present Cognition (Neuro): normal cognition Extrem General: Yes normal to inspection, Yes full ROM and Yes capillary refill normal Psych Appearance: grossly normal Mental Status: mental status grossly normal Affect: normal affect Attitude: cooperative Thought process: Normal thought process present Thought content: Normal thought content present Insight: Good insight present (Psych) Medications Administered Generic Name Dose Route Start Last Admin Trade Name Freq PRN Reason Stop Dose Admin Piperacillin Sod/Tazobactam 50 mls @ 100 mls/hr 05/29/24 13:39 05/29/24 13:50 Sod 3.375 gm/ Sodium Chloride IV 05/29/24 14:08 100 mls/hr ONCE ONE Administration Discontinued Medications Generic Name Dose Route Start Last Admin Trade Name Freq PRN Reason Stop Dose Admin Hydromorphone HCl 1 mg 05/29/24 13:39 05/29/24 13:50 Hydromorphone Hcl 1 Mg/Ml Syringe IVPUSH 05/29/24 13:40 1 mg ONCE ONE Administration Protocol Ondansetron HCl 4 mg 05/29/24 13:39 05/29/24 13:50 Ondansetron Hcl 4 Mg/2 Ml Vial IVPUSH 05/29/24 13:40 4 mg ONCE ONE Administration Medical Decision Making Medical Decision Making [facility] Narrative: Patient is a 44 year old assigned male at with a history of HTN, GERD, and fatty liver presenting to the emergency department today with lower abdominal pain. Patient's physical exam was as noted in the physical exam portion of this note. Patient's blood work was unremarkable. Patient's urine showed moderate blood but no evidence of infection. Patient's abd/pelvis CT showed diverticulitis with acute perforation. I spoke to the general surgeon who recommended admission to his service and to keep the patient NPO. I explained my physical exam findings as well as all test results to the patient. I answered all questions asked by the patient. Patient verbalized agreement and understanding with this treatment plan and admission. Differential Diagnosis Differential Diagnoses: The differential diagnosis associated with the presentation includes Diverticulitis with perforation Complicated diverticulitis Abdominal pain Renal calculus Admission/Observation Consideration of admission/observation: Escalation of care including admission/observation considered Patient admitted as noted in the MDM Rationale portion of this note. Consult Healthcare Provider Management of the patient was discussed with: Sales Review Clerk (spoke to Dr. Madrid the general surgeon airborne operations superintendent, as noted in the MDM Rationale portion of this note.) Lab Data [facility] Lab Attestation statement: I reviewed the patient's lab results. My interpretation of these results are in the MDM Rationale portion of this note. 05/29/24 09:35 05/29/24 09:35 Labs: Lab Results 05/29/24 Range/Units 09:35 WBC 7.9 (4.8-10.8) X10*3/uL RBC 4.54 L (4.60-5.80) X10*6/uL Hgb 13.9 L (14.0-18.0) g/dl Hct 40.5 L (42.0-52.0) % MCV 89.2 (80.0-98.0) fL MCH 30.6 (27.0-33.0) pg MCHC 34.3 (31.0-36.0) g/dl RDW 12.1 (11.0-16.0) % Plt Count 213 (160-400) X10*3/uL MPV 9.5 (9.4-12.4) fL Immature Gran % (Auto) 0.3 (0.0-0.4) % Neut % (Auto) 65.6 (45-73) % Lymph % (Auto) 22.3 (20-40) % [place] % (Auto) 10.6 (2-11) % Eos % (Auto) 0.8 (0-4) % Baso % (Auto) 0.4 (0-2) % Lymph # (Auto) 1.8 (1.2-4.9) X10*3/uL [place] # (Auto) 0.8 (0.1-1.2) X10*3/uL Eos # (Auto) 0.1 (0.0-0.4) X10*3/uL Baso # (Auto) 0.0 (0.0-0.2) X10*3/uL Abs Immat Gran (auto) 0.02 (0.00-0.03) X10*3/uL Absolute Neuts (auto) 5.2 (2.0-8.3) x10*3/uL Absolute Nucleated RBC 0.000 (0.0-0.012) X10*3/uL Nucleated RBC % (auto) 0.0 (0.0-0.2) /100WBC Sodium 140 (135-145) mmol/L Potassium 4.3 (3.3-5.1) mmol/L Chloride 107 (96-108) mmol/L Carbon Dioxide 24 (22-29) mmol/L Anion Gap 13 (12-20) BUN 13 (9-16) mg/dL Creatinine 0.84 (0.5-1.4) mg/dL Estim Creat Clear Calc 142.0 Estimated GFR > 60 Random Glucose 102 (60-115) mg/dL Calcium 9.7 (8.4-10.2) mg/dL Total Bilirubin 0.6 (0.0-1.0) mg/dL Direct Bilirubin 0.2 (0.0-0.5) mg/dL AST 23 (5-37) U/L ALT 37 (0-40) U/L Alkaline Phosphatase 53 (39-117) U/L Total Protein 7.7 (6.5-8.0) g/dL Albumin 4.2 (3.5-5.0) g/dL Lipase 34 (8-78) U/L Urine Color Dark Yellow Urine Appearance Cloudy Urine pH 5.5 (5.0-9.0) Ur Specific [place] 1.025 (1.005-1.025) Urine Protein 300 (3+) H (Neg-Trace) mg/dL Urine Glucose (UA) Negative (Negative) mg/dL Urine Ketones 15 (Negative) mg/dL Urine Blood Moderate (2+) H (Negative) Urine Nitrite Negative (Negative) Ur Leukocyte Esterase Trace H (Negative) Urine RBC 3-5 H (0-2) /HPF Urine WBC 0-5 (0-5) /HPF Ur Squamous Epith Cells 0-2 (0-2) /HPF Urine Bacteria None Seen (None Seen) Hyaline Casts 0-2 (0-2) /LPF Independent Interpretation I performed an independent interpretation of an: CT Scan Interpretation: My interpretation is in agreement with the radiologist's impression of this imaging study. - EXAMINATION: CT ABDOMEN AND PELVIS WITHOUT CONTRAST CLINICAL INFORMATION: Abdominal pain. Concern for kidney stone. COMPARISON: Abdominal ultrasound of 10/16/2023 TECHNIQUE: Multidetector volumetric imaging was performed from the superior aspect of the liver through the pubic symphysis. Sagittal and coronal reformatted images were obtained on the technologist's workstation. This CT examination was performed using dose optimization techniques as appropriate, variously including the following: *Automated exposure control *Adjustment of mA and/or kV according to patient size (this includes techniques or standardized protocols for targeted exams where dose is matched to indication/reason for exam; i.e. extremities or head) *Use of iterative reconstruction technique DLP: 828 mGy-cm FINDINGS: LUNG BASES: The visualized lung bases are unremarkable. LIVER, GALLBLADDER, AND BILIARY TREE: The liver is normal in size and contour. Diffuse patchy low attenuation of hepatic parenchyma is noted suggesting hepatic steatosis. Within the limits of noncontrast study, no focal liver lesion is seen. No biliary ductal dilatation. No radiopaque filling defect is noted in the common bile duct. The gallbladder is unremarkable with no evidence of radiopaque gallstones, gallbladder wall thickening, or obvious pericholecystic inflammatory changes. PANCREAS: Unremarkable. SPLEEN: Unremarkable. ADRENAL GLANDS: Unremarkable. KIDNEYS AND URETERS: The kidneys are normal in size, shape, and attenuation. No hydronephrosis, hydroureter, or calculi seen. No perinephric stranding. BLADDER: Unremarkable. GASTROINTESTINAL TRACT: Moderate diverticulosis of sigmoid colon and mild diverticulosis of the remainder of the colon. Pericolonic fat stranding is noted around the proximal to mid segment of the sigmoid colon multiple extraluminal air foci are noted in the vicinity as well as extending more superiorly (series 3 images 83 through 69/109). No discrete abscess formation is noted at this time. Mild reactive colonic thickening in this region is suspected. Remainder of the colon is unremarkable without evidence of wall thickening or pericolonic fat stranding. An appendix is normal. No abnormal dilatation of the stomach and small bowel is noted. PERITONEAL CAVITY: No evidence of free intraperitoneal fluid. ABDOMINAL WALL: There is superior periumbilical fat-containing hernia measuring 3 cm in maximum dimension. LYMPH NODES: No evidence of pathologically enlarged lymph nodes. VASCULAR: The iliac vessels are normal in caliber. Mild scattered calcific atherosclerosis of the aortoiliac vessels. PELVIC VISCERA: Unremarkable. OSSEOUS STRUCTURES: No acute or suspicious osseous abnormality. CT/CT abdomen pelvis wo IV con IMPRESSION: 1. Findings consistent with acute sigmoid diverticulitis with perforation. No discrete abscess collection is noted at this time. 2. No evidence of radiopaque urinary tract calculi, hydroureteronephrosis or perinephric stranding. 3. Hepatic steatosis. Fleischner guidelines were followed. Electronically signed by: Jayne Esparza MD 05/29/2024 01:21 PM EDT RP Dictated By: Jayne Esparza MD Signed By: Electronically signed by Jayne Esparza MD 05/29/24 1321 Radiology Impression Discussion of test interpretation with radiology: I have reviewed the radiologist's reading. Chronic Conditions Patient?s care impacted by: Hypertension Critical Care Time Critical Care Time Critical Care Time: Yes Total Critical Care Time: 48 Attestation: I spent 48 minutes of Critical Care Time with this patient. This does not include time spent on separately reported billable procedures. Discharge Plan Discharge Clinical Impression: Perforated bowel, Diverticulitis Patient Disposition: Admitted As Inpatient Print Language: Portuguese
[2024-05-29] MEDS: ondansetron HCL 4 MG/2 ML VIAL IVPUSH ×2 (13:50→22:44)
[2024-05-29] MEDS: Piperacillin Sodium/Tazobactam 3.375 GM in 0.9 % Sodium Chloride 50 ML IV ×2 (13:50→20:20)
[2024-05-29] MEDS: HYDROmorphone HCl 1 MG/ML SYRINGE IVPUSH (13:50)
[2024-05-29 13:56] VITALS: BP 141/78; PULSE 63; RESP 18; O2SAT 97
--- NOTE | 2024-05-29 14:40 | PHA.MEDREC ---
Addendum entered by Joselin Patino RPh 05/29/24 14:48: reviewed by [facility]. Original Note: Pharmacy Consult ? Medication Reconciliation Pharmacy has completed the medication reconciliation.
[2024-05-29] MEDS: Dextrose 5 % and Lactated Ring 1,000 ML 125 ML IVCONT ×2 (14:57→22:45)
[2024-05-29 15:37] VITALS: BMI 31.4
[2024-05-29 15:43] VITALS: BP 159/75; PULSE 64; RESP 20; TEMP 36.1; O2SAT 97
[2024-05-29] MEDS: HYDROmorphone HCl 0.5 MG/0.5 ML SYRINGE IVPUSH ×2 (16:57→20:47)
--- NOTE | 2024-05-29 18:27 | PM.HPGS ---
History of Present Illness History of Present Illness Date of Service: 05/29/24 Chief complaint: Diverticulitis with perforation Narrative: Ernie Hernandez is a 44 year old male patient presenting with complaints of abdominal pain in the right and left lower quadrants of 4 days' duration. The pain began suddenly with no inciting event. Pain was associated with fever and chills as well as constipation. Reports taking MiraLax which did help with the bowels but he continued to have abdominal pain. The pain seemed to increase with the ambulation and was felt to be a proximally 7 to 8/10 severity. He denies a previous history of similar pain. He subsequently presented to the emergency department for further evaluation. WBC was noted to be normal however CT abdomen and pelvis revealed evidence of sigmoid diverticulitis with a contained perforation. Extraluminal air was noted in the mesentery and pelvis without free air or abscess. He is admitted to the surgical service for further management. Review of Systems Review of Systems: Yes all other systems are reviewed and are negative Constitutional: Constitutional: Reports chills, Reports fever(s), Denies headache(s), Reports poor appetite and Denies weakness ENT: Denies headache(s) Cardiovascular: Cardiovascular: Denies chest pain, Denies irregular heart rhythm, Denies palpitations and Denies dyspnea Respiratory: Respiratory: Denies cough, Denies excessive phlegm production and Denies dyspnea Gastrointestinal: Gastrointestinal: Reports abdominal pain, Denies bloating, Denies change in bowel habits, Reports constipation, Denies heartburn, Denies diarrhea, Reports nausea and Denies vomiting Genitourinary: Genitourinary: Denies difficulty urinating and Denies urinary frequency Musculoskeletal: Musculoskeletal: Denies back pain, Denies muscle weakness and Denies numbness Comments: Pelvic and Leg pain Integumentary/Breasts: Skin/Breast: Denies changing lesions and Denies unusual bruising Neurologic: Denies headache(s), Denies numbness, Denies paresthesias and Denies weakness Psychiatric: Psychiatric: Denies anxiety and Denies depression Endocrine: Endocrine: Denies palpitations Hematologic/Lymphatic: Hematologic/Lymphatic: Denies lymphadenopathy [facility] Past Medical History Medical History Sprain of left elbow Family History Family History Sister Glioblastoma Surgical History Surgical History H/O vasectomy Social History Social History Household Members: Spouse and Children Housing: House Alcohol intake: current Alcohol intake frequency: a few times a week Alcohol type: beer and wine Patient Tobacco Use Status: Never used Tobacco Tobacco use type: Cigarette Smoked in Last 30 Days: No e-Cigarette/Vaping Use: Never Used Patient Interested in Nicotine Replacement: No Patient Given Instructions on How to Stop Smoking: No Second Hand Smoke Exposure: No Use of substances other than those prescribed or required for medical reasons: Yes Substance Use Type: Marijuana Substance Use Frequency: Monthly Currently Displaying Signs/Symptoms of Drug Intoxication Withdrawal: Yes Any prior treatment program specific to substance use: No Have you been hit, kicked, punched, or otherwise hurt by someone within the past year? If so, by whom?: No Do you feel safe in your current relationship?: Yes Is there a partner from a previous relationship who is making you feel unsafe now?: No Are you made to feel afraid or neglected: No Advance Directives: No Advance Directives Information Provided: No Advance Directives on File: No Do you have a plan to hurt others: No Plan Recently lost weight without trying: No How much weight loss: Not applicable Eating poorly because of decreased appetite: No Nutrition screen score: 0 Nutrition Risks: No Nutritional Risk Poor oral hygiene: No service: No Current occupational status: employed Current occupation: [employer] Cognitive needs: No Hearing needs: No Vision needs: No Meds Allergies Allergy/AdvReac Type Severity Reaction Status Date / Time Sulfa (Sulfonamide Allergy Unknown UNKNOWN, Verified 05/29/24 09:23 Antibiotics) hives [SULFA (SULFONAMIDE ANTIBIOTICS)] Active Medications: Current Medications Acetaminophen (Acetaminophen 325 Mg Tablet) 650 mg PO Q6H PRN PRN Reason: Pain, Mild (Pain Scale 1-3), fever or headache Calcium Carbonate (Calcium Carbonate 750 Mg Tab.Chew) 750 mg PO Q4H PRN PRN Reason: Heartburn Enoxaparin Sodium (Enoxaparin Sodium 40 Mg/0.4 Ml Syringe) 40 mg SUBCUT Q24H [facility] Hydromorphone HCl (Hydromorphone Hcl 0.5 Mg/0.5 Ml Syringe) 0.5 mg IVPUSH Q3H PRN; Protocol PRN Reason: Pain, Severe (Pain Scale 7-10) Last Admin: 05/29/24 16:57 Dose: 0.5 mg Dextrose/Lactated Ringer's (D5lr) 1,000 mls @ 125 mls/hr IVCONT .Q8H [facility] Last Admin: 05/29/24 14:57 Dose: 125 mls/hr Piperacillin Sod/Tazobactam (Sod 3.375 gm/ Sodium Chloride) 50 mls @ 100 mls/hr IV Q6H [facility] Magnesium Hydroxide (Milk Of Magnesia 30 Ml Oral.Susp) 30 ml PO DAILY PRN PRN Reason: Constipation Melatonin (Melatonin 3 Mg Tablet) 6 mg PO BEDTIME PRN PRN Reason: Insomnia Ondansetron HCl (Ondansetron Hcl 4 Mg/2 Ml Vial) 4 mg IVPUSH QID PRN PRN Reason: Nausea Oxycodone HCl (Oxycodone Hcl Immed Release 5 Mg Tablet) 5 mg PO Q6H PRN PRN Reason: Pain, Moderate(Pain Scale 4-6) Sodium Chloride (0.9 % Sodium Chloride Flush 3 Ml Syringe) 3 ml IVFLUSH QSHIFT [facility] Last Admin: 05/29/24 15:02 Dose: Not Given Zolpidem Tartrate (Zolpidem Tartrate 5 Mg Tablet) 5 mg PO BEDTIME PRN PRN Reason: Insomnia Home Medications ?Medication ?Instructions ?Recorded ?Confirmed ?Last Taken ?Type multivitamin 1 tab PO DAILY 05/29/24 05/29/24 05/28/24 History Physical Exam Vital Signs: Vital Signs: Last Vital Signs Temp 97.0 F 05/29/24 15:43 Pulse 64 05/29/24 15:43 Resp 20 05/29/24 15:43 BP 159/75 H 05/29/24 15:43 Pulse Ox 97 05/29/24 15:43 O2 Del Method Room Air 05/29/24 15:43 BMI result Body Mass Index 31.4 Const: General: cooperative and no acute distress Nutritional Appearance: well nourished Orientation/consciousness: patient oriented x3 Limitations: no limitations HEENT: Head: Yes normocephalic and Yes atraumatic Ears: hearing grossly normal bilaterally Resp: Effort & Inspection: normal respiratory effort, no audible wheezes, no cough and no respiratory distress Cardio: Jugular venous distension: no JVD GI: Inspection: Yes normal to inspection Palpation (GI): Soft to palpation, Tenderness to palpation present (GI) in the LLQ, in the RLQ and with rebound tenderness, no guarding and not rigid Percussion: Yes normal to percussion Auscultation: normal bowel sounds Rectal Exam - Male: Yes deferred Skin: Other: Warm, dry, no rash Neuro: General: patient oriented x3 Extrem: General: Yes no clubbing, cyanosis or edema Results Results Labs: Short CBC 05/29/24 Range/Units 09:35 WBC 7.9 (4.8-10.8) X10*3/uL Hgb 13.9 L (14.0-18.0) g/dl Hct 40.5 L (42.0-52.0) % Plt Count 213 (160-400) X10*3/uL BMP 05/29/24 09:35 Sodium 140 Potassium 4.3 Chloride 107 Carbon Dioxide 24 BUN 13 Creatinine 0.84 Calcium 9.7 Liver Function 05/29/24 Range/Units 09:35 Total Bilirubin 0.6 (0.0-1.0) mg/dL Direct Bilirubin 0.2 (0.0-0.5) mg/dL AST 23 (5-37) U/L ALT 37 (0-40) U/L Alkaline Phosphatase 53 (39-117) U/L Albumin 4.2 (3.5-5.0) g/dL Urine 05/29/24 Range/Units 09:35 Urine Color Dark Yellow Urine Appearance Cloudy Urine pH 5.5 (5.0-9.0) Ur Specific [place] 1.025 (1.005-1.025) Urine Protein 300 (3+) H (Neg-Trace) mg/dL Urine Glucose (UA) Negative (Negative) mg/dL Assessment and Plan (1) Diverticulitis: Status: Acute (2) Perforated bowel: Status: Acute Plan 44-year-old male patient presenting with a 1st episode of sigmoid diverticulitis with a contained perforation with extraluminal air without abscess noted. Options include nonoperative management with IV antibiotics verses surgery for Kay procedure. As his WBC is normal and the perforation appears to be contained I suggested a trial of IV antibiotics with reassessment over the next 24 hours. If his symptoms seem to be worsening, we will need to proceed to surgery however if the symptoms do improve he will eventually be converted to oral antibiotics and arrangements made for an elective sigmoid colectomy. The patient expressed understanding and agrees with the plan. Quality Stroke Does the patient have a stroke diagnosis?: No VTE Prior VTE?: No VTE Risk Level:: Surgical - moderate VTE Device Contraindication: N/A - Device Ordered VTE Drug Contraindication: N/A - Med Ordered Procedures Date of Service Date of Service: 05/29/24
[2024-05-29] MEDS: oxyCODONE HCl Immed Release 5 MG TABLET PO (18:44)
[2024-05-29] MEDS: Acetaminophen 1,000 MG/100 ML PIGGYBACK 400 MG IV (19:40)
[2024-05-29 19:43] VITALS: BP 170/84; PULSE 57; RESP 20; TEMP 36.3; O2SAT 98
[2024-05-29] MEDS: Melatonin 3 MG TABLET 6 MG PO (22:44)
[2024-05-30] VITALS (7 sets, daily range): BP systolic 135–150; BP diastolic 67–84; PULSE 50–62; RESP 18–20; TEMP 36.3–37; O2SAT 96–98
[2024-05-30] MEDS: HYDROmorphone HCl 0.5 MG/0.5 ML SYRINGE IVPUSH ×6 (00:08→20:33)
[2024-05-30] MEDS: Acetaminophen 1,000 MG/100 ML PIGGYBACK 400 MG IV ×4 (01:41→19:25)
[2024-05-30] MEDS: Piperacillin Sodium/Tazobactam 3.375 GM in 0.9 % Sodium Chloride 50 ML IV ×4 (02:02→20:35)
[2024-05-30] MEDS: Dextrose 5 % and Lactated Ring 1,000 ML 125 ML IVCONT ×2 (08:03→19:23)
[2024-05-30] MEDS: 0.9 % Sodium Chloride Flush 3 ML SYRINGE IVFLUSH ×2 (08:26→20:32)
--- NOTE | 2024-05-30 08:35 | P.PNGS_ITS ---
Subjective Subjective Date of Service: 05/30/24 <Lyubov Tariq PA-C - Last Filed: 05/30/24 08:39> 05/30/24 <Desean Madrid MD - Last Filed: 05/30/24 12:53> Interval history: Feels improved this morning with less abdominal pain. Had some nausea last night but resolved. <Lyubov Tariq PA-C - Last Filed: 05/30/24 08:39> Physical Exam 2 Vital Signs: Vital Signs: Last Vital Signs Temp 98.0 F 05/30/24 07:30 Pulse 50 05/30/24 07:30 Resp 18 05/30/24 07:30 BP 146/73 H 05/30/24 07:30 Pulse Ox 98 05/30/24 07:30 O2 Del Method Room Air 05/30/24 07:30 BMI result Body Mass Index 31.4 <Lyubov Tariq PA-C - Last Filed: 05/30/24 08:39> Const: General: comfortable, no acute distress and alert <Lyubov Tariq PA-C - Last Filed: 05/30/24 08:39> Orientation/consciousness: patient oriented x3 <VANESA Estrada Last Filed: 05/30/24 08:39> Resp: Effort & Inspection: normal respiratory effort <VANESA Estrada Last Filed: 05/30/24 08:39> GI: Inspection: Yes normal to inspection and No distended <Lyubov Tariq PA-C - Last Filed: 05/30/24 08:39> Palpation (GI): Soft to palpation, Tenderness to palpation present (GI) (left mid abdome and LLQ tenderness) with no rebound tenderness and no guarding < VANESA Estrada Last Filed: 05/30/24 08:39> Percussion: Yes normal to percussion <VANESA Estrada Last Filed: 05/30/24 08:39> Skin: General skin exam: no rashes or lesions noted <VANESA Estrada Last Filed: 05/30/24 08:39> Neuro: General: patient oriented x3 <Lyubov Tariq PA-C - Last Filed: 05/30/24 08:39> Objective Data Active Medications Calcium Carbonate (Calcium Carbonate 750 Mg Tab.Chew) 750 mg PO Q4H PRN PRN Reason: Heartburn Enoxaparin Sodium (Enoxaparin Sodium 40 Mg/0.4 Ml Syringe) 40 mg SUBCUT Q24H [facility] Hydromorphone HCl (Hydromorphone Hcl 0.5 Mg/0.5 Ml Syringe) 0.5 mg IVPUSH Q3H PRN; Protocol PRN Reason: Pain, Severe (Pain Scale 7-10) Last Admin: 05/30/24 08:26 Dose: 0.5 mg Documented By: DIANA Dextrose/Lactated Ringer's (D5lr) 1,000 mls @ 125 mls/hr IVCONT .Q8H [facility] Last Admin: 05/30/24 08:03 Dose: 125 mls/hr Documented By: DIANA Piperacillin Sod/Tazobactam (Sod 3.375 gm/ Sodium Chloride) 50 mls @ 100 mls/hr IV Q6H [facility] Last Admin: 05/30/24 07:54 Dose: 100 mls/hr Documented By: DIANA Acetaminophen (Ofirmev) 1,000 mg in 100 mls @ 400 mls/hr IV Q6H [facility] Last Infusion: 05/30/24 08:00 Dose: Infused Documented By: DIANA Magnesium Hydroxide (Milk Of Magnesia 30 Ml Oral.Susp) 30 ml PO DAILY PRN PRN Reason: Constipation Melatonin (Melatonin 3 Mg Tablet) 6 mg PO BEDTIME PRN PRN Reason: Insomnia Last Admin: 05/29/24 22:44 Dose: 6 mg Documented By: LASHAUN Ondansetron HCl (Ondansetron Hcl 4 Mg/2 Ml Vial) 4 mg IVPUSH QID PRN PRN Reason: Nausea Last Admin: 05/29/24 22:44 Dose: 4 mg Documented By: LASHAUN Oxycodone HCl (Oxycodone Hcl Immed Release 5 Mg Tablet) 5 mg PO Q6H PRN PRN Reason: Pain, Moderate(Pain Scale 4-6) Last Admin: 05/29/24 18:44 Dose: 5 mg Documented By: JOSH Sodium Chloride (0.9 % Sodium Chloride Flush 3 Ml Syringe) 3 ml IVFLUSH QSHIFT [facility] Last Admin: 05/30/24 00:52 Dose: Not Given Documented By: LASHAUN Non-Admin Reason: IV Running Zolpidem Tartrate (Zolpidem Tartrate 5 Mg Tablet) 5 mg PO BEDTIME PRN PRN Reason: Insomnia <Lyubov Tariq PA-C - Last Filed: 05/30/24 08:39> Labs CBC & Chem 7: 05/29/24 09:35 05/29/24 09:35 <Lyubov Tariq PA-C - Last Filed: 05/30/24 08:39> Labs: Laboratory Results - last 24 hr 05/29/24 09:35 MCV 89.2 MCH 30.6 MCHC 34.3 RDW 12.1 Plt Count 213 MPV 9.5 Immature Gran % (Auto) 0.3 Neut % (Auto) 65.6 Lymph % (Auto) 22.3 Boyd % (Auto) 10.6 Eos % (Auto) 0.8 Baso % (Auto) 0.4 Lymph # (Auto) 1.8 Boyd # (Auto) 0.8 Eos # (Auto) 0.1 Baso # (Auto) 0.0 Abs Immat Gran (auto) 0.02 Absolute Neuts (auto) 5.2 Absolute Nucleated RBC 0.000 Nucleated RBC % (auto) 0.0 Anion Gap 13 Estim Creat Clear Calc 142.0 Estimated GFR > 60 Random Glucose 102 Calcium 9.7 Total Bilirubin 0.6 Direct Bilirubin 0.2 AST 23 ALT 37 Alkaline Phosphatase 53 Total Protein 7.7 Albumin 4.2 Lipase 34 Urine Color Dark Yellow Urine Appearance Cloudy Urine pH 5.5 Ur Specific [place] 1.025 Urine Protein 300 (3+) H Urine Glucose (UA) Negative Urine Ketones 15 Urine Blood Moderate (2+) H Urine Nitrite Negative Ur Leukocyte Esterase Trace H Urine RBC 3-5 H Urine WBC 0-5 Ur Squamous Epith Cells 0-2 Urine Bacteria None Seen Hyaline Casts 0-2 <Lyubov Tariq PA-C - Last Filed: 05/30/24 08:39> Procedures Date of Service Date of Service: 05/30/24 <Lyubov Tariq PA-C - Last Filed: 05/30/24 08:39> 05/30/24 <Desean Madrid MD - Last Filed: 05/30/24 12:53> Progress Note: A&P Assessment and plan (1) Diverticulitis: Status: Acute <Lyubov Tariq PA-C - Last Filed: 05/30/24 08:39> (2) Perforated bowel: Status: Acute <Lyubov Tariq PA-C - Last Filed: 05/30/24 08:39> Assessment and Plan: Admitted with sigmoid diverticulitis with microperforation. Seems to be improving with supportive measures. Hemodynamically stable, abd increasingly soft this morning, mild LLQ tenderness. Can continue IV abx, IVF for now. Advance to clear liquids, as tolerated. OOB/ambulation. Patient comfortable with plan. <Lyubov Tariq PA-C - Last Filed: 05/30/24 08:39> Admitted with sigmoid diverticulitis with microperforation. Seems to be improving with supportive measures. Hemodynamically stable, abd increasingly soft this morning, mild LLQ tenderness. Can continue IV abx, IVF for now. Advance to clear liquids, as tolerated. OOB/ambulation. Patient comfortable with plan. Patient seen and examined independently and agree with the above assessment and plan. Continue IV antibiotics, start clear liquids. <Desean Madrid MD - Last Filed: 05/30/24 12:53> Time Spent With Patient Time: Total time managing care of this patient today ____ minutes. <Lyubov Tariq PA-C - Last Filed: 05/30/24 08:39> Quality Stroke Does the patient have a stroke diagnosis?: No <Lyubov Tariq PA-C - Last Filed: 05/30/24 08:39> VTE Prior VTE?: No <Lyubov Tariq PA-C - Last Filed: 05/30/24 08:39> VTE Risk Level:: Surgical - moderate <Lyubov Tariq PA-C - Last Filed: 05/30/24 08:39> VTE Device Contraindication: N/A - Device Ordered <Lyubov Tariq PA-C - Last Filed: 05/30/24 08:39> VTE Drug Contraindication: N/A - Med Ordered <Lyubov Tariq PA-C - Last Filed: 05/30/24 08:39>
--- NOTE | 2024-05-30 13:53 | MHC.CM.PN ---
Patient lives in a home w/ /kids. Functionally independent. Denies use of DME or services. PCP Ben ANDERSON Reports he has an HCP w/ [facility] listed as [facility]. Copy requested. DP: Goal is home self care. to transport. CM will continue to follow.
[2024-05-30] MEDS: Enoxaparin Sodium 40 MG/0.4 ML SYRINGE SUBCUT (14:07)
[2024-05-31] MEDS: Acetaminophen 1,000 MG/100 ML PIGGYBACK 400 MG IV (01:41)
[2024-05-31 01:43] VITALS: BP 148/87; PULSE 56; RESP 18; TEMP 36.1; O2SAT 97
[2024-05-31] MEDS: Piperacillin Sodium/Tazobactam 3.375 GM in 0.9 % Sodium Chloride 50 ML IV ×3 (02:02→13:04)
[2024-05-31] MEDS: Dextrose 5 % and Lactated Ring 1,000 ML 125 ML IVCONT (02:38)
[2024-05-31] MEDS: HYDROmorphone HCl 0.5 MG/0.5 ML SYRINGE IVPUSH ×2 (06:15→11:53)
[2024-05-31 07:41] VITALS: BP 167/79; PULSE 53; RESP 18; TEMP 36.6; O2SAT 96
--- NOTE | 2024-05-31 07:53 | P.PNGS_ITS ---
Subjective Subjective Date of Service: 05/31/24 <Lyubov Tariq PA-C - Last Filed: 05/31/24 07:56> 05/31/24 <Desean Madrid MD - Last Filed: 05/31/24 08:14> Interval history: Currently denies any pain. Had BM. Tolerating clear liquids without nausea or vomiting. Wants to eat. <Lyubov Tariq PA-C - Last Filed: 05/31/24 07:56> Physical Exam 2 Vital Signs: Vital Signs: Last Vital Signs Temp 97.9 F 05/31/24 07:41 Pulse 53 05/31/24 07:41 Resp 18 05/31/24 07:41 BP 167/79 H 05/31/24 07:41 Pulse Ox 96 05/31/24 07:41 O2 Del Method Room Air 05/31/24 07:41 BMI result Body Mass Index 31.4 <Lyubov Tariq PA-C - Last Filed: 05/31/24 07:56> Const: General: comfortable, no acute distress and alert <Lyubov Tariq PA-C - Last Filed: 05/31/24 07:56> Orientation/consciousness: patient oriented x3 <Lyubov Tariq PA-C - Last Filed: 05/31/24 07:56> Resp: Effort & Inspection: normal respiratory effort <Lyubov Tariq PA-C - Last Filed: 05/31/24 07:56> GI: Inspection: No distended <Lyubov Tariq PA-C - Last Filed: 05/31/24 07:56> Palpation (GI): Soft to palpation, Tenderness to palpation present (GI) (suprapubic and mild LLQ tenderness) and no guarding <Lyubov Tariq PA-C - Last Filed: 05/31/24 07:56> Percussion: Yes normal to percussion <VANESA Estrada Last Filed: 05/31/24 07:56> Skin: General skin exam: no rashes or lesions noted <VANESA Estrada Last Filed: 05/31/24 07:56> Neuro: General: patient oriented x3 and moves all extremities <Lyubov Tariq PA-C - Last Filed: 05/31/24 07:56> Objective Data Active Medications Calcium Carbonate (Calcium Carbonate 750 Mg Tab.Chew) 750 mg PO Q4H PRN PRN Reason: Heartburn Enoxaparin Sodium (Enoxaparin Sodium 40 Mg/0.4 Ml Syringe) 40 mg SUBCUT Q24H [facility] Last Admin: 05/30/24 14:07 Dose: 40 mg Documented By: DIANA Hydromorphone HCl (Hydromorphone Hcl 0.5 Mg/0.5 Ml Syringe) 0.5 mg IVPUSH Q3H PRN; Protocol PRN Reason: Pain, Severe (Pain Scale 7-10) Last Admin: 05/31/24 06:15 Dose: 0.5 mg Documented By: DAISY Dextrose/Lactated Ringer's (D5lr) 1,000 mls @ 125 mls/hr IVCONT .Q8H [facility] Last Admin: 05/31/24 02:38 Dose: 125 mls/hr Documented By: DAISY Piperacillin Sod/Tazobactam (Sod 3.375 gm/ Sodium Chloride) 50 mls @ 100 mls/hr IV Q6H [facility] Last Infusion: 05/31/24 02:38 Dose: Infused Documented By: DAISY Acetaminophen (Ofirmev) 1,000 mg in 100 mls @ 400 mls/hr IV Q6H [facility] Last Admin: 05/31/24 07:06 Dose: Not Given Documented By: YANCY Non-Admin Reason: pt comfortable for now Magnesium Hydroxide (Milk Of Magnesia 30 Ml Oral.Susp) 30 ml PO DAILY PRN PRN Reason: Constipation Melatonin (Melatonin 3 Mg Tablet) 6 mg PO BEDTIME PRN PRN Reason: Insomnia Last Admin: 05/29/24 22:44 Dose: 6 mg Documented By: LASHAUN Ondansetron HCl (Ondansetron Hcl 4 Mg/2 Ml Vial) 4 mg IVPUSH QID PRN PRN Reason: Nausea Last Admin: 05/29/24 22:44 Dose: 4 mg Documented By: LASHAUN Oxycodone HCl (Oxycodone Hcl Immed Release 5 Mg Tablet) 5 mg PO Q6H PRN PRN Reason: Pain, Moderate(Pain Scale 4-6) Last Admin: 05/29/24 18:44 Dose: 5 mg Documented By: JOSH Sodium Chloride (0.9 % Sodium Chloride Flush 3 Ml Syringe) 3 ml IVFLUSH [facility] Last Admin: 05/30/24 20:32 Dose: 3 ml Documented By: DAISY Zolpidem Tartrate (Zolpidem Tartrate 5 Mg Tablet) 5 mg PO BEDTIME PRN PRN Reason: Insomnia <Lyubov Tariq PA-C - Last Filed: 05/31/24 07:56> Labs CBC & Chem 7: 05/29/24 09:35 05/29/24 09:35 <Lyubov Tariq PA-C - Last Filed: 05/31/24 07:56> Procedures Date of Service Date of Service: 05/31/24 <Lyubov Tariq PA-C - Last Filed: 05/31/24 07:56> 05/31/24 <Desean Madrid MD - Last Filed: 05/31/24 08:14> Progress Note: A&P Assessment and plan (1) Diverticulitis: Status: Acute <Lyubov Tariq PA-C - Last Filed: 05/31/24 07:56> Assessment and Plan: Improving symptomatically, tolerating clears. Will advance to solid diet. Will reassess later for possible dc to home on PO abx with follow up in office. Will need colonoscopy down the line. Patient comfortable with plan. <Lyuobv Tariq PA-C - Last Filed: 05/31/24 07:56> Improving symptomatically, tolerating clears. Will advance to solid diet. Will reassess later for possible dc to home on PO abx with follow up in office. Will need colonoscopy down the line. Patient comfortable with plan. Patient seen and examined, agree with the above assessment and plan. Would anticipate elective sigmoid colectomy in 1-2 months after bowel prep. Patient understands and agrees with the plan. <Desean Madrid MD - Last Filed: 05/31/24 08:14> Time Spent With Patient Time: Total time managing care of this patient today ____ minutes. <Lyubov Tariq PA-C - Last Filed: 05/31/24 07:56> Quality Stroke Does the patient have a stroke diagnosis?: No <Lyubov Tariq PA-C - Last Filed: 05/31/24 07:56> VTE Prior VTE?: No <Lyubov Tariq PA-C - Last Filed: 05/31/24 07:56> VTE Risk Level:: Surgical - moderate <Lyubov Tariq PA-C - Last Filed: 05/31/24 07:56> VTE Device Contraindication: N/A - Device Ordered <Lyubov Tariq PA-C - Last Filed: 05/31/24 07:56> VTE Drug Contraindication: N/A - Med Ordered <Lyubov Tariq PA-C - Last Filed: 05/31/24 07:56>
[2024-05-31] MEDS: 0.9 % Sodium Chloride Flush 3 ML SYRINGE IVFLUSH (08:17)
[2024-05-31 08:33] VITALS: BP 146/90
[2024-05-31] MEDS: oxyCODONE HCl Immed Release 5 MG TABLET PO (10:37)
--- NOTE | 2024-05-31 13:50 | P.DS_ITS ---
DS: Providers Provider Date of Service: 05/31/24 Date of admission: 05/29/24 13:51 Date of discharge: 05/31/24 Primary care physician: Ben Ashley PA-C Attending physician on admission: Desean Madrid Attending physician on discharge: Desean Madrid DS: Diagnosis Discharge Diagnosis (1) Diverticulitis: Status: Acute DS: Summary Hospital Course Hospital Course: HPI AT ADMISSION: Ernie Hernandez is a 44 year old male patient presenting with complaints of abdominal pain in the right and left lower quadrants of 4 days' duration. The pain began suddenly with no inciting event. Pain was associated with fever and chills as well as constipation. Reports taking MiraLax which did help with the bowels but he continued to have abdominal pain. The pain seemed to increase with the ambulation and was felt to be a proximally 7 to 8/10 severity. He denies a previous history of similar pain. He subsequently presented to the emergency department for further evaluation. WBC was noted to be normal however CT abdomen and pelvis revealed evidence of sigmoid diverticulitis with a contained perforation. Extraluminal air was noted in the mesentery and pelvis without free air or abscess. HOSPITAL COURSE: He is admitted to the surgical service for further management of sigmoid diverticulitis with a contained perforation with extraluminal air without abscess noted. As his WBC was normal and the perforation appeared to be contained it was recommended trialling nonoperative treatment with IV antibiotics and reassessment over the next 24 hours. He was started on IV zosyn, IVF and kept NPO for bowel rest. He had significant improvement in his abdominal pain and tenderness over the next couple days and his diet was advanced to solids slowly as tolerated. On the day of discharge, he was tolerating a solid diet, had only mild abd pain, was moving his bowels and had a benign abdominal exam with minimal tenderness. He was hemodynamically stable. He was discharged to home on 05/31/24 in stable condition on a course of PO augmentin. He is to follow up in the office in 1 week to discuss eventual sigmoid resection. He will need a colonoscopy down the line. Status at Discharge Functional status at discharge: independent ambulation Overall status at discharge: patient is progressing back to baseline Time Attestation Discharge Coordination Time (in mins): 35 Quality: Safe Use of Opioids Does Pt have an Active Cancer Diagnosis on the Problem List?: No Quality: Stroke Does the patient have a stroke diagnosis?: No Physical Exam Vital Signs: Vital Signs: Last Vital Signs Temp 97.9 F 05/31/24 07:41 Pulse 53 05/31/24 07:41 Resp 18 05/31/24 07:41 BP 146/90 H 05/31/24 08:33 Pulse Ox 96 05/31/24 07:41 O2 Del Method Room Air 05/31/24 07:41 BMI result Body Mass Index 31.4 Const: General: comfortable, no acute distress and alert Orientation/consciousness: patient oriented x3 Resp: Effort & Inspection: normal respiratory effort GI: Inspection: No distended Palpation (GI): Soft to palpation, Tenderness to palpation present (GI) (mild suprapubic, LLQ ) and no guarding Skin: General skin exam: no rashes or lesions noted Neuro: General: patient oriented x3 Discharge Plan Discharge Anticipated Discharge Date/Time: 05/31/24 15:18 Patient Disposition: Home, Self-Care Discharge Diagnosis: sigmoid diverticulitis Referrals: Ben Ashley PA-C [Primary Care Provider] - 1 Week Desena Madrid MD [Physician] - 1 Week Discharge Medications: New amoxicillin-pot clavulanate 875-125 mg tablet 1 tab PO BID Qty: 14 0RF oxycodone 5 mg tablet 5 mg PO Q6H PRN (Reason: pain (scale score 7-10)) Qty: 15 0RF Rx Instructions: Partial Fill upon patient request. Continued multivitamin Tablet 1 tab PO DAILY (DME) blood pressure test kit-large Kit See Rx Instructions .Route Qty: 1 0RF Rx Instructions: As directed Discharge Orders: Discharge Order (Routine); Ordered 05/31/24 Ordered By: Lyubov Tariq Diet: low residue diet Activity on Discharge: As tolerated Stand Alone Forms: Patient Portal Discharge page Print Language: Peruvian Activity Restrictions/Additional Instructions: Follow up in office in a week. ([phone]) Call Your Doctor If: ? ? -Your temperature exceeds 101.5? F? ? ? -You experience excessive pain or swelling ? ? -You have an unexpected reaction to medication ? ? -You experience continued vomiting/nausea Care Plan Goals: Return to baseline health and resume normal activities as tolerated. Health Concerns: sigmoid diverticulitis with contained perforation Plan of Treatment: Nonoperative with IV transitioned to PO abx, bowel rest, IVF F/u in office in 1 week Colonoscopy down the line Assessment: Improved
--- NOTE | 2024-05-31 14:32 | MHC.CM.PN ---
DP: PT HAS BEEN MEDICALLY CLEARED FOR DC HOME, NO SERVICES. PT HAS OWN RIDE HOME HOME
== END 2024-05-31 14:21 | disposition home or self-care (01) | DRG 244 ==
LOC: HO.ED 13:49 → HO.EDOVER 14:01 → HO.S3 14:41
PROVIDERS: Admitting Provider Surgery; Emergency Provider Emergency Medicine Emergency Medical Services; PCP Physician Assistant; Visit Provider Surgery
DX: K57.20 Diverticulitis of large intestine with perforation and abscess without bleeding (principal); K76.0 Fatty (change of) liver, not elsewhere classified; Z79.899 Other long term (current) drug therapy
CPT/HCPCS: 36415; 74176; 80048; 80076; 81001; 81003; 83690; 85025; 99285; J0131; J1170; J1650; J2405; J2543

== ENCOUNTER → 2024-05-29 13:51 | Outpatient (BNV) | payer BC, SELFPAY | PROVIDERS: Admitting Provider Surgery; Emergency Provider Emergency Medicine Emergency Medical Services; PCP Physician Assistant; Visit Provider Surgery | DX: K57.92 Diverticulitis of intestine, part unspecified, without perforation or abscess without bleeding (principal) | CPT/HCPCS: 99222; 99232; 99239; 99499 ==

== ENCOUNTER 2024-06-02 14:02 | Outpatient (AMB) | payer BC, SELFPAY ==
--- NOTE | 2024-06-02 14:03 | MHC.PC.OV ---
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 Required: No Accompanied by: Self / Same As Patient Allergies Sulfa (Sulfonamide Antibiotics) [SULFA (SULFONAMIDE ANTIBIOTICS)] Allergy (Unknown, Verified 06/02/24 14:11) UNKNOWN, hives Medication List - Last Reconciled 06/02/24 by Ben Ashley PA-C amoxicillin-pot clavulanate 875-125 mg 1 tab PO BID blood pressure test kit-large As directed multivitamin 1 tab PO DAILY oxycodone 5 mg PO Q6H PRN Tobacco use date assessed: 11/02/23 Dental Screening Dental Screen Date: 11/02/23 HPI [facility] [place]sigmoid [place]itis HPI Details Patient is a 44-year-old male here today for a hospital discharge follow-up. He was seen at the [place] [facility] for acute abdominal pain and constipation. CT of his abdomen and pelvis did reveal evidence of sigmoid diverticulitis with a contained perforation with extraluminal air noted. He was admitted to the surgical service. Surgery opted to treat nonoperatively with IV antibiotics and fluids. He clinically improved while in the hospital was discharged with p.o. Augmentin. Currently feeling somewhat better though still has some discomfort in his lower abdomen. He has been using oxycodone 5 mg on a p.r.n. basis, he reports the pain is worse at night even wakes him up from sleep. He is willing to try higher dose of pain medication for better control of his pain temporarily. Otherwise He has no further syncopal episodes, fever or chills. He has had low appetite thus he is not had any frequent bowel movements. Has upcoming appointment with general surgery next week to discuss possible bowel resection. TCM TCM Information Date of Discharge 05/31/24 Discharged From [facility] Interactive Contact Date (Reference documentation from this date) 06/01/24 FORMERLY [facility] Medical History Sprain of left elbow Surgical History H/O vasectomy Family History Sister Glioblastoma Social History Household Members: Spouse and Children Housing: House Alcohol intake: current Alcohol intake frequency: a few times a week Alcohol type: beer and wine Patient Tobacco Use Status: Never used Tobacco Tobacco use type: Cigarette e-Cigarette/Vaping Use: Never Used Second Hand Smoke Exposure: No Substance Use Type: Marijuana service: No Current occupational status: employed Current occupation: [employer] Cognitive needs: No Hearing needs: No Vision needs: No Questionnaire Thrive Questionnaire Date Thrive assessed: 11/02/23 DEYVI-7 AMB Questionnaire DEYVI-7 Date DEYVI - 7 assessed: 11/02/23 Source: Developed by Drs. Felipe Coleman, Clarissa Palacios, Celestino Michael and colleagues, with an educational mary from [employer]. Review of Systems Const Denies headache(s) Eyes Denies loss of vision ENT Denies vertigo, Denies dizziness, Denies headache(s) and Denies sore throat Card Denies chest pain, Denies leg edema and Denies lightheadedness Resp Denies cough, Denies hemoptysis and Denies wheezing GI Reports abdominal pain, Denies melena, Reports bloating, Denies constipation, Reports dyspepsia, Reports heartburn, Denies diarrhea and Denies vomiting Denies dysuria, Denies urinary frequency and Denies urinary urgency Musc Denies arthralgias, Denies joint swelling, Denies numbness and Denies tingling Neuro Denies Abnormal speech present, Denies behavioral changes, Denies vertigo, Denies dizziness, Denies headache(s), Denies loss of vision, Denies memory loss, Denies numbness and Denies tingling Psych Denies anxiety, Denies behavioral changes, Denies depression, Denies memory loss and Denies panic attacks Aron/Lymph Denies easy bleeding and Denies easy bruising Aller/Immun Denies wheezing Physical exam (Primary Care) Vital Signs: Last Vital Signs Pulse 70 06/02/24 14:04 BP 134/86 06/02/24 14:04 Pulse Ox 97 06/02/24 14:04 Oxygen Delivery Method Room Air 06/02/24 14:04 BMI result Body Mass Index 30.4 Tobacco/Smoking Status: Tobacco use Status Tobacco use date assessed 11/02/23 06/02/24 14:03 Patient Tobacco Use Status Never used Tobacco 06/02/24 14:03 Tobacco use type Cigarette 06/02/24 14:03 e-Cigarette/Vaping Use Never Used 06/02/24 14:03 Thrive Assessment: Date of Thrive Assessment Date Thrive assessed 11/02/23 06/02/24 14:03 Const General: healthy appearing, no acute distress, alert and awake Nutritional Appearance: well nourished Orientation/consciousness: oriented to person, oriented to place and oriented to time HENMT Ears: TM's normal bilaterally General nose exam: Normal nasal mucous membranes and turbinates present Eyes Conjunctivae: conjunctivae normal Sclerae: sclerae normal Pupils: Equal, round and reactive pupils present Neck Neck: Yes no lymphadenopathy and Yes no JVD Thyroid: Thyroid normal Carotids: no bruits Resp Effort & Inspection: normal respiratory effort and not tachypneic Auscultation: no crackles, no rales, no rhonchi and no wheezes Cardio Rate: regular rate Rhythm: regular rhythm Heart sounds: no murmurs and normal S1 and S2 GI Palpation (GI): Soft to palpation, nontender, no hepatomegaly and no splenomegaly Auscultation: normal bowel sounds Abdomen image: 1. SOME MILD TENDERNESS TO PALPATION IN THE LEFT LOWER ABDOMINAL QUADRANT Skin General skin exam: no rashes or lesions noted and dry skin Neuro General: oriented to person, oriented to place and oriented to time Cranial nerves: Yes Equal, round and reactive pupils present Speech: No Abnormal speech present Gait exam (Neuro): Normal gait present Motor exam (neuro): no tremor noted Extrem Right upper extremity: full ROM Left upper extremity: full ROM Right lower extremity: full ROM; no edema Left lower extremity: full ROM; no edema Psych Mental Status: mental status grossly normal Speech and movement: Normal speech and movement present Affect: normal affect Attitude: cooperative Thought process: Normal thought process present Assessment and Plan Assessment & Plan (1) Hospital discharge follow-up: Code(s): Z09 - Encounter for follow-up examination after completed treatment for conditions other than malignant neoplasm Plan: As per HPI (2) Diverticulitis of colon with perforation: Code(s): K57.20 - Diverticulitis of large intestine with perforation and abscess without bleeding Plan: Patient continues to pretty significant pain at times. No fevers or chills. Will increase his oxycodone 10 mg for better pain control. Advised on trying a nonsteroidal anti-inflammatory as well. Will be following up with general surgeon Thursday next week to discuss possibility of bowel resection. He is likely due for sigmoid bowel resection with anastomosis. (3) GERD (gastroesophageal reflux disease): Code(s): K21.9 - Gastro-esophageal reflux disease without esophagitis Qualifiers: Esophagitis presence: without esophagitis Qualified Code(s): K21.9 - Gastro-esophageal reflux disease without esophagitis Plan: Was originally on omeprazole 20 mg though was not covered by insurance.. Will supply patient with omeprazole 40 mg for his GERD symptoms. Medications: New omeprazole 40 mg PO DAILY 30 days 30 caps 3RF K21.9 - Gastro-esophageal reflux disease without esophagitis oxycodone Partial Fill upon patient request. 10 mg PO Q8H 7 days PRN 21 tabs 0RF pain K57.92 - Diverticulitis of intestine, part unspecified, without perforation or abscess without bleeding docusate sodium (Colace) 100 mg PO DAILY 15 days 15 caps 0RF K57.92 - Diverticulitis of intestine, part unspecified, without perforation or abscess without bleeding Coding Level of Care Code Est Pt Level 3 (74216) Diagnoses Hospital discharge follow-up Z09 Diverticulitis of colon with perforation K57.20 Gastroesophageal reflux disease without esophagitis K21.9 Esophagitis presence: without esophagitis
[2024-06-02 14:04] VITALS: BP 134/86; PULSE 70; O2SAT 97; BMI 30.4
== END 2024-06-02 14:35 | disposition home or self-care (01) ==
PROVIDERS: PCP Physician Assistant; Visit Provider Physician Assistant
DX: Z09 Encounter for follow-up examination after completed treatment for conditions other than malignant neoplasm (principal); K57.20 Diverticulitis of large intestine with perforation and abscess without bleeding; K21.9 Gastro-esophageal reflux disease without esophagitis; K57.92 Diverticulitis of intestine, part unspecified, without perforation or abscess without bleeding
CPT/HCPCS: 99213

== ENCOUNTER 2024-06-08 14:08 | Outpatient (AMB) | payer BC, SELFPAY ==
[2024-06-08 14:11] VITALS: BMI 30.4
--- NOTE | 2024-06-08 14:11 | A.OFFVIS_ITS ---
Vital Signs 06/08/24 14:11 Height 6 ft Weight 224 lb 7.983 oz BMI 30.4 Intake Visit Reasons: diverticulitis Intake Note: This patient presents for [facility] emergency department follow-up for diverticulitis. Pt c/o; reports discomfort, occsional pain, reports no fever, chills, nausea or vomiting. 05/29/2024: Abd/pelvis CT R D Intern Required: No Accompanied by: Self / Same As Patient Allergies Sulfa (Sulfonamide Antibiotics) [SULFA (SULFONAMIDE ANTIBIOTICS)] Allergy (Unknown, Verified 06/08/24 14:12) UNKNOWN, hives Medication List - Last Reconciled 06/08/24 by Surya Quesada MD amoxicillin-pot clavulanate 875-125 mg 1 tab PO BID blood pressure test kit-large As directed docusate sodium (Colace) 100 mg PO DAILY 15 days multivitamin 1 tab PO DAILY omeprazole 40 mg PO DAILY 30 days oxycodone 5 mg PO Q6H PRN oxycodone 10 mg PO Q8H PRN 7 days HPI HPI diverticulitis: Details: 44-year-old male here for follow-up for diverticulitis. He was admitted by Dr. Madrid last 05/29/2024 because of diverticulitis with a microperforation. He was on IV antibiotics and was discharged on hospital day 2. He says that the bleeding doing well since discharge. He denies any abdominal pain although feels a little bit of discomfort on the left lower quadrant. He has good bowel movements. He has good oral intake. He denies any fever or chills. [facility] Medical History (Updated 06/08/24 @ 14:33 by Surya Quesada MD) Morbid obesity Sprain of left elbow Surgical History H/O vasectomy Family History Sister Glioblastoma Social History Household Members: Spouse and Children Housing: House Alcohol intake: current Alcohol intake frequency: a few times a week Alcohol type: beer and wine Patient Tobacco Use Status: Never used Tobacco Tobacco use type: Cigarette e-Cigarette/Vaping Use: Never Used Second Hand Smoke Exposure: No Substance Use Type: Marijuana service: No Current occupational status: employed Current occupation: [employer] Cognitive needs: No Hearing needs: No Vision needs: No Review of Systems Const Denies chills and Denies fever(s) Card Denies chest pain, Denies dyspnea and Denies dyspnea on exertion Resp Denies cough, Denies dyspnea and Denies dyspnea on exertion GI Denies hematochezia and Denies change in bowel habits Denies hematuria and Denies difficulty urinating Musc Denies back pain and Denies limited range of motion Neuro Denies focal weakness and Denies convulsions Psych Denies depression and Denies mood swings Physical Exam Vital Signs: BMI result Body Mass Index 30.4 Const Other: Appears overweight General: comfortable and no acute distress Resp Effort & Inspection: normal respiratory effort Cardio Rate: regular rate GI Palpation (GI): Soft to palpation, not firm, nontender and no guarding Assessment & Plan Assessment & Plan (1) Diverticulitis of colon with perforation: Code(s): K57.20 - Diverticulitis of large intestine with perforation and abscess without bleeding Category: Medical Plan: He was admitted by Dr. Madrid last May 29 because of diverticulitis with a microperforation. He is doing well at this time. He denies any significant pain or tenderness. He has good oral intake and has good bowel movements His exam is benign I explained to him that it was best for him to have a colonoscopy because of his episode of diverticulitis. This may be done 6 weeks after his episode. I have instructed him to reach out to his primary care physician to have him referred to a vp celebrity services I did explain to him the option of elective resection especially with recurrent diverticulitis. He says that he has had 1 episode so far. I I instructed him to see Dr. Madrid again for a follow-up next month. Coding Level of Care Code Est Pt Level 3 (12115) Diagnoses Diverticulitis of colon with perforation K57.20
== END 2024-06-08 14:35 | disposition home or self-care (01) ==
PROVIDERS: PCP Physician Assistant; Visit Provider Surgery
DX: K57.20 Diverticulitis of large intestine with perforation and abscess without bleeding (principal)
CPT/HCPCS: 99213

== ENCOUNTER → 2024-06-08 14:08 | Outpatient (BNVA) | payer BC, SELFPAY | PROVIDERS: PCP Physician Assistant; Visit Provider Surgery ==

== ENCOUNTER 2024-07-12 12:45 | Outpatient (AMB) | payer BC, SELFPAY ==
--- NOTE | 2024-07-12 12:56 | MHC.OFFVIS ---
Vital Signs 07/12/24 13:00 Height 5 ft 11 in Weight 228 lb 4 oz BMI 31.8 BP 165/85 H Blood Pressure Location Lt brachial Position Sitting Pulse 62 Intake Visit Reasons: 1 month follow up diverticulitis Intake Note: Patient is seen in office for one month follow up visit, following diverticulitis. 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 Accompanied by: Self / Same As Patient Allergies Sulfa (Sulfonamide Antibiotics) [SULFA (SULFONAMIDE ANTIBIOTICS)] Allergy (Unknown, Verified 07/12/24 13:00) UNKNOWN, hives Medication List - Last Reconciled 07/12/24 by Desean Madrid MD amoxicillin-pot clavulanate 875-125 mg 1 tab PO BID blood pressure test kit-large As directed docusate sodium (Colace) 100 mg PO DAILY 15 days multivitamin 1 tab PO DAILY omeprazole 40 mg PO DAILY 30 days oxycodone 5 mg PO Q6H PRN oxycodone 10 mg PO Q8H PRN 7 days HPI Comments Details: 44-year-old male patient returning for follow-up examination after recent admission for sigmoid diverticulitis. He was admitted on 05/29/2024 with sigmoid diverticulitis with perforation. He was found to have extraluminal air surrounding the sigmoid colon and was treated non operatively with IV antibiotics and then converted to oral antibiotics. He generally feels improved although does occasionally have some left groin pain. Reports a prior history of a left inguinal hernia repair while in the service and was concerned about infection of the mesh. He reports his bowels are normal but he does take Metamucil several times weekly to help with his bowels. He denies fever, chills, nausea or vomiting. He reports having an appointment with a plastic surgery coordinator from [place] early in August. He will then schedule a colonoscopy prior to his surgical procedure. He is also scheduled for an elbow surgery in the next 1-2 weeks. He and his family are planning a trip to [place] in October and would like to postpone any colon surgery until after this trip. [facility] Medical History Morbid obesity Sprain of left elbow Surgical History H/O vasectomy Family History Sister Glioblastoma Social History Household Members: Spouse and Children Housing: House Alcohol intake: current Alcohol intake frequency: a few times a week Alcohol type: beer and wine Patient Tobacco Use Status: Never used Tobacco Tobacco use type: Cigarette e-Cigarette/Vaping Use: Never Used Second Hand Smoke Exposure: No Substance Use Type: Marijuana service: No Current occupational status: employed Current occupation: [employer] Cognitive needs: No Hearing needs: No Vision needs: No Review of Systems Const All systems reviewed & are unremarkable except as noted in HPI and below Physical Exam Vital Signs: Last Vital Signs Pulse 62 07/12/24 13:00 BP 165/85 H 07/12/24 13:00 BMI result Body Mass Index 31.8 Const Other: Appears overweight General: comfortable and no acute distress Resp Effort & Inspection: normal respiratory effort Cardio Rate: regular rate GI Other: Left groin with a well-healed incision. No palpable hernia with Valsalva maneuvers. No evidence of wound infection or hernia recurrence. Palpation (GI): Soft to palpation, not firm, Tenderness to palpation present (GI) in the LLQ; with no rebound tenderness and Rovsing's sign negative, no guarding, not rigid and No hepatosplenomegaly present Percussion: Yes normal to percussion Auscultation: normal bowel sounds Skin Other: Warm, dry, no rash Assessment & Plan Assessment & Plan (1) Diverticulitis of colon with perforation: Code(s): K57.20 - Diverticulitis of large intestine with perforation and abscess without bleeding Category: Medical Plan 44-year-old male patient with history of sigmoid diverticulitis found on exam to still have some tenderness in the left lower quadrant. He is awaiting colonoscopy prior to colon surgery. I recommended restarting the antibiotics due to the persistent tenderness in the left lower quadrant. If his symptoms worsen and he was instructed to call our office. He should also call our office after his gastroenterology appointment for follow-up visit. Medications: Refilled amoxicillin-pot clavulanate 875-125 mg 1 tab PO BID 20 tabs 1RF K57.20 - Diverticulitis of large intestine with perforation and abscess without bleeding Coding Level of Care Code Est Pt Level 3 (50975) Diagnoses Diverticulitis of colon with perforation K57.20
[2024-07-12 13:00] VITALS: BP 165/85; PULSE 62; BMI 31.8
== END 2024-07-12 13:23 | disposition home or self-care (01) ==
PROVIDERS: PCP Physician Assistant; Visit Provider Surgery
DX: K57.20 Diverticulitis of large intestine with perforation and abscess without bleeding (principal)
CPT/HCPCS: 99213

== ENCOUNTER → 2024-07-12 12:45 | Outpatient (BNVA) | payer BC, SELFPAY | PROVIDERS: PCP Physician Assistant; Visit Provider Surgery ==

== ENCOUNTER 2024-09-05 07:27 | Outpatient (REF) | payer BC, SELFPAY ==
--- OUTSIDE RECORDS SUMMARY | 2024-09-05 07:31 | XMS_ITS ---
Author Organization [facility] Address [address] [place] [address] Care Team Providers Care Poke In Name Role Phone GLENN BOSTON Primary Care Provider Unavailab SOFIA Garcia Unavailable [phone] LIS VENEGAS Unavailable [phone] REASON FOR VISIT PA update Encounters Encounter Location Date Provider Diagnosis [address] [place] [address] 06/27/2024 LIS VENEGAS PLAN OF TREATMENT Next Appt Details Provider Name:LIS Jiménez, 09/07/2024 09:30:00 AM, [address], [address], [place], [address], Progress Notes * Ernie AKERSDOB:1980 (44 yo M)Acc No.[id number]:06/27/2024 Patient:??Ernie AKERS :1980?Age:44 Y?Sex:Genesis roberts Address:[address] [place] [address] [place] [address] * true * Date:??
--- OUTSIDE RECORDS SUMMARY | 2024-09-05 07:31 | XMS_ITS | Patient Health Record ---
Author Organization [facility] Address [address] [place] [address] Care Team Providers Care Fnps Name Role Phone GLENN BOSTON Primary Care Provider Unavailab SOFIA Garcia Unavailable [phone] LIS VENEGAS Unavailable [phone] ALLERGIES Allergen (clinical drug ingredient) Drug/Non Drug Allergy documented on EMR Reaction Allergy Type Onset Date Status Substance with sulfonamide structure and antibacterial mechanism of action (substance) Sulfa Antibiotics Unknown Drug Allergy Active REASON FOR REFERRAL Diagnosis 1 Body mass index [BMI ] 32.0-32.9, adult (Z68.32) Diagnosis 2 Other obesity due to excess calories (E66.09) Referred Provider Specialty Weight Manag ement Clinical Notes Soumya Cervantse 11/2023 09:23:05 AM > CALLED PT AND LEFT A VM TO PLS CALL BACK TO BE BOOKED. Referral Priority Routine MEDICATIONS Medication SIG (Take, Route, Fr equency, Duration) Notes Start Date End Date Status Zepbound 5 MG/0.5ML Inject 5mg Subcutane ous weekly for 30 days Active OxyCONTIN 10 MG 1 tablet Orally every 12 hrs Active Advil 200 MG 1 tablet with food o r milk as needed Orally Three times a day Active Omeprazole 40 MG 1 capsule 1/2 to 1 h our before morning meal Orally Once a day A ctive PROBLEMS Problem Type ICD Code Onset Dates Problem Status W/U Status Risk SNOMED Code Notes Problem Other obesity due to excess calories (E66.09) Active confirmed Obesity due to excess calories (831522155) Problem Obesity (BMI 30-39.9) (E66.9) Active confirmed [id number] Problem Body mass index [BMI] 32.0-32.9, adult (Z68.32) Active confirmed Body mass index 30.00 to 34.99 (30667849276 4107) Problem Elevated BP without diagnosis of hypertension (R03.0) Active confirmed 751298810 Problem Gastroesophageal reflux disease, unspecified whether esophagitis present (K21.9) Active confirmed 693679350 Problem Elevated cholesterol (E78.00) Active confirmed 89127902 Problem BMI 31.0-31.9,adult (Z68.31) Active confirmed 298735965 Problem BMI 30.0-30.9,adult (Z68.30) Active confirmed 534867222 Problem Diverticulosis (K57.90) Active confirmed 285113195 Problem Nutritional counseling (Z71.3) Active confirmed 335679929 VITAL SIGNS Heart Rate 63 /min 08/03/2024 Oximetry 99 % 08/03/2024 Blood pressure diastolic 78 mm Hg 08/03/2024 Height 70 in 08/03/2024 Blood pressure systolic 150 mm Hg 08/03/2024 Weight 222 lbs 08/03/2024 BMI 31.85 kg/m2 08/03/2024 Encounters Encounter Location Date Provider Diagnosis [address] [address] 06/09/2024 [facility] [address] [address] 07/26/2024 [facility] [address] [address] 06/22/2024 [facility] Obesity (BMI 30-39.9 ) E66.9 ; BMI 30.0-30.9,adult Z68.30 ; Gastroesophageal reflux disease, unspecified whether esophagitis present K21.9 ; Diverticulosis K57.90 ; Elevated cholesterol E78.00 ; Elevated BP without diagnosis of hypertension R03.0 and Nutritional counseling Z71.3 [address] [address] 08/03/2024 LIS THEO Obesity (BMI 30-39.9 ) E66.9 ; BMI 31.0-31.9,adult Z68.31 ; Gastroesophageal reflux disease, unspecified whether esophagitis present K21.9 ; Diverticulosis K57.90 ; Elevated cholesterol E78.00 ; Elevated BP without diagnosis of hypertension R03.0 and Nutritional counseling Z71.3 [facility] [facility] [address] [place] [address] 06/21/2024 SOFIA THAO [address] [facility] [address] [place] [address] 06/27/2024 LIS VENEGAS [facility] [address] [facility] [address] [place] [address] 06/22/2024 LIS VENEGAS ASSESSMENTS Encounter Date Diagnosis Assessment Notes Treatment Notes Treatment Clinical Notes Section Notes 06/22/2024 Obesity (BMI 30-39.9) (ICD-10 - E66.9) Ernie is a 44-year-old male with a PMH of diverticulosis, GERD that presents new to the practice for weight management consult. Patient was reassured and welcomed to the practice. Discussed [facility] holistic and medical approach to weight loss with emphasis on lifestyle modification. Patient is educated that a healthy lifestyle aids in combating obesity as well as reducing the risk of developing obesity-related medical complications including but not limited to diabetes and cardiovascular disease. Detailed education provided about taking steps to initiate sustainable lifestyle changes including incorporating regular physical activity, making healthy diet choices, and prioritizing mental health. Information provided about literature including The Food Rules by Danny Flores and Eat Fat Get Lean by Dr Jama Mahoney. Handouts including lifestyle checklist, protein content of food, low calorie snacks, and cholesterol information sheet provided. Diagnostic testing/ SECA scale offered. Discussed the importance of regular SECA scale measurements to ensure healthy weight loss. 06/22/2024: Weight: 223, 1: 31.99. Reviewed SECA/goals for implementing sustainable lifestyle changes. Patient is encouraged to increase physical activity, goal 8-10k steps/day. Also discussed the importance of strength training with proper safety/body mechanics for maintenance of muscle mass/bone health. Patient encouraged to drink 60-80oz water/day. Reviewed nutrition, recommending food diary x 1 week to ensure adequate caloric/protein intake. Goal of 100g protein/day. Reviewed risks, benefits, and side effects of weight management medications including phentermine, Topamax, Contrave, metformin, and GLP-1 agonist.Patient contacted his insurance company and states they will cover Zepbound, Rx for Zepbound 2.5 mg SC weekly sent to pharmacy. Patient denies personal/family history of M EN syndrome/medullary thyroid cancer. Reviewed proper use, administration, and side effects. Reviewed expectations for PA process/insurance coverage. Patient plans to commit to changing lifestyle although next month with plan to wait and see what insurance says about the medication. After consultation and careful review of medical history, this patient would benefit from Zepbound based off of the following criteria met: Patient is over the age of 18 with a BMI of 31.99. Additional comorbidities include elevated BP, elevated cholesterol, GERD. Patient has trialed other methods of weight loss including improving diet and exercise without success.This medication is prescribed by or in consultation with a board-certified obesity and weight management physician (Dr. No Alexander or Dr. Janna Alexander). All questions answered to the patient's satisfaction. Patient demonstrates understanding of diagnosis and treatments discussed. Follow-up in 4-weeks, sooner should any questions/concerns arise. Case discussed with collaborating physician Ronnie Alexander who has reviewed the assessment/plan. Chart, medications, labs, and vital signs reviewed. Dictation completed with the use of Appboy voice recognition software, prone to medical misidentifications and grammatical errors. All errors are unintentional. Although the practitioner does try to identify and correct errors, some may be present. Please do not hesitate to contact the practitioner for clarification. 06/22/2024 BMI 30.0-30.9,adult (ICD-10 - Z68.30) Ernie is a 44-year-old male with a PMH of diverticulosis, GERD that presents new to the practice for weight management consult. Patient was reassured and welcomed to the practice. Discussed [facility] holistic and medical approach to weight loss with emphasis on lifestyle modification. Patient is educated that a healthy lifestyle aids in combating obesity as well as reducing the risk of developing obesity-related medical complications including but not limited to diabetes and cardiovascular disease. Detailed education provided about taking steps to initiate sustainable lifestyle changes including incorporating regular physical activity, making healthy diet choices, and prioritizing mental health. Information provided about literature including The Food Rules by Danny Flores and Eat Fat Get Lean by Dr Jama Mahoney. Handouts including lifestyle checklist, protein content of food, low calorie snacks, and cholesterol information sheet provided. Diagnostic testing/ SECA scale offered. Discussed the importance of regular SECA scale measurements to ensure healthy weight loss. 06/22/2024: Weight: 223, 1: 31.99. Reviewed SECA/goals for implementing sustainable lifestyle changes. Patient is encouraged to increase physical activity, goal 8-10k steps/day. Also discussed the importance of strength training with proper safety/body mechanics for maintenance of muscle mass/bone health. Patient encouraged to drink 60-80oz water/day. Reviewed nutrition, recommending food diary x 1 week to ensure adequate caloric/protein intake. Goal of 100g protein/day. Reviewed risks, benefits, and side effects of weight management medications including phentermine, Topamax, Contrave, metformin, and GLP-1 agonist.Patient contacted his insurance company and states they will cover Zepbound, Rx for Zepbound 2.5 mg SC weekly sent to pharmacy. Patient denies personal/family history of M EN syndrome/medullary thyroid cancer. Reviewed proper use, administration, and side effects. Reviewed expectations for PA process/insurance coverage. Patient plans to commit to changing lifestyle although next month with plan to wait and see what insurance says about the medication. After consultation and careful review of medical history, this patient would benefit from Zepbound based off of the following criteria met: Patient is over the age of 19 with a BMI of 31.99. Additional comorbidities include elevated BP, elevated cholesterol, GERD. Patient has trialed other methods of weight loss including improving diet and exercise without success.This medication is prescribed by or in consultation with a board-certified obesity and weight management physician (Dr. No Alexander or Dr. Janna Alexander). All questions answered to the patient's satisfaction. Patient demonstrates understanding of diagnosis and treatments discussed. Follow-up in 4-weeks, sooner should any questions/concerns arise. Case discussed with collaborating physician Ronnie Alexander who has reviewed the assessment/plan. Chart, medications, labs, and vital signs reviewed. Dictation completed with the use of App[employer] voice recognition software, prone to medical misidentifications and grammatical errors. All errors are unintentional. Although the practitioner does try to identify and correct errors, some may be present. Please do not hesitate to contact the practitioner for clarification. 08/03/2024 Obesity (BMI 30-39.9) (ICD-10 - E66.9) Ernie is a 44-year-old male with a PMH of diverticulosis, GERD that presents new to the practice for weight management follow-up. Reviewed [facility] holistic and medical approach to weight loss with emphasis on lifestyle modification. 08/03/2024: Weight: 222, BMI: 31.85. SECA reviewed, relatively unchanged. The patient is encouraged to partake in modified physical activity as tolerated/permitted given his recent left elbow procedure. Reviewed the importance of adequate protein intake, goal 80 g/day for maintenance of muscle mass/bone health. Is additionally encouraged to continue making health-conscious diet choices and drinking plenty of water. Rx for Zepbound 5 mg SC weekly sent to pharmacy. #Elevated BP: Patient's BP is elevated at 150/78. The patient is encouraged to purchase a home BP And take BP readings while he was relaxed twice daily. Recommending follow-up with his primary care provider should BPs consistently be elevated greater than 140/90. 06/22/2024: Weight: 223, 1: 31.99. Reviewed SECA/goals for implementing sustainable lifestyle changes. Patient is encouraged to increase physical activity, goal 8-10k steps/day. Also discussed the importance of strength training with proper safety/body mechanics for maintenance of muscle mass/bone health. Patient encouraged to drink 60-80oz water/day. Reviewed nutrition, recommending food diary x 1 week to ensure adequate caloric/protein intake. Goal of 100g protein/day. Reviewed risks, benefits, and side effects of weight management medications including phentermine, Topamax, Contrave, metformin, and GLP-1 agonist.Patient contacted his insurance company and states they will cover Zepbound, Rx for Zepbound 2.5 mg SC weekly sent to pharmacy. Patient denies personal/family history of M EN syndrome/medullary thyroid cancer. Reviewed proper use, administration, and side effects. Reviewed expectations for PA process/insurance coverage. Patient plans to commit to changing lifestyle although next month with plan to wait and see what insurance says about the medication. All questions answered to the patient's satisfaction. Patient demonstrates understanding of diagnosis and treatments discussed. Follow-up in 4-weeks, sooner should any questions/concerns arise. Case discussed with collaborating physician Zonia Alexander who has reviewed the assessment/plan. Chart, medications, labs, and vital signs reviewed. Dictation completed with the use of Appboy voice recognition software, prone to medical misidentifications and grammatical errors. All errors are unintentional. Although the practitioner does try to identify and correct errors, some may be present. Please do not hesitate to contact the practitioner for clarification. Total time spent was 25 minutes with >50% on coordination of care and patient education. 08/03/2024 BMI 31.0-31.9,adult (ICD-10 - Z68.31) Enrie is a 44-year-old male with a PMH of diverticulosis, GERD that presents new to the practice for weight management follow-up. Reviewed [facility] holistic and medical approach to weight loss with emphasis on lifestyle modification. 08/03/2024: Weight: 222, BMI: 31.85. SECA reviewed, relatively unchanged. The patient is encouraged to partake in modified physical activity as tolerated/permitted given his recent left elbow procedure. Reviewed the importance of adequate protein intake, goal 80 g/day for maintenance of muscle mass/bone health. Is additionally encouraged to continue making health-conscious diet choices and drinking plenty of water. Rx for Zepbound 5 mg SC weekly sent to pharmacy. #Elevated BP: Patient's BP is elevated at 150/78. The patient is encouraged to purchase a home BP And take BP readings while he was relaxed twice daily. Recommending follow-up with his primary care provider should BPs consistently be elevated greater than 140/90. 06/22/2024: Weight: 223, 1: 31.99. Reviewed SECA/goals for implementing sustainable lifestyle changes. Patient is encouraged to increase physical activity, goal 8-10k steps/day. Also discussed the importance of strength training with proper safety/body mechanics for maintenance of muscle mass/bone health. Patient encouraged to drink 60-80oz water/day. Reviewed nutrition, recommending food diary x 1 week to ensure adequate caloric/protein intake. Goal of 100g protein/day. Reviewed risks, benefits, and side effects of weight management medications including phentermine, Topamax, Contrave, metformin, and GLP-1 agonist.Patient contacted his insurance company and states they will cover Zepbound, Rx for Zepbound 2.5 mg SC weekly sent to pharmacy. Patient denies personal/family history of M EN syndrome/medullary thyroid cancer. Reviewed proper use, administration, and side effects. Reviewed expectations for PA process/insurance coverage. Patient plans to commit to changing lifestyle although next month with plan to wait and see what insurance says about the medication. All questions answered to the patient's satisfaction. Patient demonstrates understanding of diagnosis and treatments discussed. Follow-up in 4-weeks, sooner should any questions/concerns arise. Case discussed with collaborating physician Zonia Alexander who has reviewed the assessment/plan. Chart, medications, labs, and vital signs reviewed. Dictation completed with the use of Appboy voice recognition software, prone to medical misidentifications and grammatical errors. All errors are unintentional. Although the practitioner does try to identify and correct errors, some may be present. Please do not hesitate to contact the practitioner for clarification. Total time spent was 25 minutes with >50% on coordination of care and patient education. 08/03/2024 Gastroesophageal reflux disease, unspecified whether esophagitis present (ICD-10 - K21.9) Ernie is a 44-year-old male with a PMH of diverticulosis, GERD that presents new to the practice for weight management follow-up. Reviewed [facility] holistic and medical approach to weight loss with emphasis on lifestyle modification. 08/03/2024: Weight: 222, BMI: 31.85. SECA reviewed, relatively unchanged. The patient is encouraged to partake in modified physical activity as tolerated/permitted given his recent left elbow procedure. Reviewed the importance of adequate protein intake, goal 80 g/day for maintenance of muscle mass/bone health. Is additionally encouraged to continue making health-conscious diet choices and drinking plenty of water. Rx for Zepbound 5 mg SC weekly sent to pharmacy. #Elevated BP: Patient's BP is elevated at 150/78. The patient is encouraged to purchase a home BP And take BP readings while he was relaxed twice daily. Recommending follow-up with his primary care provider should BPs consistently be elevated greater than 140/90. 06/22/2024: Weight: 223, 1: 31.99. Reviewed SECA/goals for implementing sustainable lifestyle changes. Patient is encouraged to increase physical activity, goal 8-10k steps/day. Also discussed the importance of strength training with proper safety/body mechanics for maintenance of muscle mass/bone health. Patient encouraged to drink 60-80oz water/day. Reviewed nutrition, recommending food diary x 1 week to ensure adequate caloric/protein intake. Goal of 100g protein/day. Reviewed risks, benefits, and side effects of weight management medications including phentermine, Topamax, Contrave, metformin, and GLP-1 agonist.Patient contacted his insurance company and states they will cover Zepbound, Rx for Zepbound 2.5 mg SC weekly sent to pharmacy. Patient denies personal/family history of M EN syndrome/medullary thyroid cancer. Reviewed proper use, administration, and side effects. Reviewed expectations for PA process/insurance coverage. Patient plans to commit to changing lifestyle although next month with plan to wait and see what insurance says about the medication. All questions answered to the patient's satisfaction. Patient demonstrates understanding of diagnosis and treatments discussed. Follow-up in 4-weeks, sooner should any questions/concerns arise. Case discussed with collaborating physician Zonia Alexander who has reviewed the assessment/plan. Chart, medications, labs, and vital signs reviewed. Dictation completed with the use of Appboy voice recognition software, prone to medical misidentifications and grammatical errors. All errors are unintentional. Although the practitioner does try to identify and correct errors, some may be present. Please do not hesitate to contact the practitioner for clarification. Total time spent was 25 minutes with >50% on coordination of care and patient education. 06/22/2024 Gastroesophageal reflux disease, unspecified whether esophagitis present (ICD-10 - K21.9) Ernie is a 44-year-old male with a PMH of diverticulosis, GERD that presents new to the practice for weight management consult. Patient was reassured and welcomed to the practice. Discussed [facility] holistic and medical approach to weight loss with emphasis on lifestyle modification. Patient is educated that a healthy lifestyle aids in combating obesity as well as reducing the risk of developing obesity-related medical complications including but not limited to diabetes and cardiovascular disease. Detailed education provided about taking steps to initiate sustainable lifestyle changes including incorporating regular physical activity, making healthy diet choices, and prioritizing mental health. Information provided about literature including The Food Rules by Danny Flores and Eat Fat Get Lean by Dr Jama Mahoney. Handouts including lifestyle checklist, protein content of food, low calorie snacks, and cholesterol information sheet provided. Diagnostic testing/ SECA scale offered. Discussed the importance of regular SECA scale measurements to ensure healthy weight loss. 06/22/2024: Weight: 223, 1: 31.99. Reviewed SECA/goals for implementing sustainable lifestyle changes. Patient is encouraged to increase physical activity, goal 8-10k steps/day. Also discussed the importance of strength training with proper safety/body mechanics for maintenance of muscle mass/bone health. Patient encouraged to drink 60-80oz water/day. Reviewed nutrition, recommending food diary x 1 week to ensure adequate caloric/protein intake. Goal of 100g protein/day. Reviewed risks, benefits, and side effects of weight management medications including phentermine, Topamax, Contrave, metformin, and GLP-1 agonist.Patient contacted his insurance company and states they will cover Zepbound, Rx for Zepbound 2.5 mg SC weekly sent to pharmacy. Patient denies personal/family history of M EN syndrome/medullary thyroid cancer. Reviewed proper use, administration, and side effects. Reviewed expectations for PA process/insurance coverage. Patient plans to commit to changing lifestyle although next month with plan to wait and see what insurance says about the medication. After consultation and careful review of medical history, this patient would benefit from Zepbound based off of the following criteria met: Patient is over the age of 19 with a BMI of 31.99. Additional comorbidities include elevated BP, elevated cholesterol, GERD. Patient has trialed other methods of weight loss including improving diet and exercise without success.This medication is prescribed by or in consultation with a board-certified obesity and weight management physician (Dr. No Alexander or Dr. Janna Alexander). All questions answered to the patient's satisfaction. Patient demonstrates understanding of diagnosis and treatments discussed. Follow-up in 4-weeks, sooner should any questions/concerns arise. Case discussed with collaborating physician Ronnie Alexander who has reviewed the assessment/plan. Chart, medications, labs, and vital signs reviewed. Dictation completed with the use of [employer] voice recognition software, prone to medical misidentifications and grammatical errors. All errors are unintentional. Although the practitioner does try to identify and correct errors, some may be present. Please do not hesitate to contact the practitioner for clarification. 06/22/2024 Diverticulosis (ICD-10 - K57.90) Ernie is a 44-year-old male with a PMH of diverticulosis, GERD that presents new to the practice for weight management consult. Patient was reassured and welcomed to the practice. Discussed [facility] holistic and medical approach to weight loss with emphasis on lifestyle modification. Patient is educated that a healthy lifestyle aids in combating obesity as well as reducing the risk of developing obesity-related medical complications including but not limited to diabetes and cardiovascular disease. Detailed education provided about taking steps to initiate sustainable lifestyle changes including incorporating regular physical activity, making healthy diet choices, and prioritizing mental health. Information provided about literature including The Food Rules by Danny Flores and Eat Fat Get Lean by Dr Jama Mahoney. Handouts including lifestyle checklist, protein content of food, low calorie snacks, and cholesterol information sheet provided. Diagnostic testing/ SECA scale offered. Discussed the importance of regular SECA scale measurements to ensure healthy weight loss. 06/22/2024: Weight: 223, 1: 31.99. Reviewed SECA/goals for implementing sustainable lifestyle changes. Patient is encouraged to increase physical activity, goal 8-10k steps/day. Also discussed the importance of strength training with proper safety/body mechanics for maintenance of muscle mass/bone health. Patient encouraged to drink 60-80oz water/day. Reviewed nutrition, recommending food diary x 1 week to ensure adequate caloric/protein intake. Goal of 100g protein/day. Reviewed risks, benefits, and side effects of weight management medications including phentermine, Topamax, Contrave, metformin, and GLP-1 agonist.Patient contacted his insurance company and states they will cover Zepbound, Rx for Zepbound 2.5 mg SC weekly sent to pharmacy. Patient denies personal/family history of M EN syndrome/medullary thyroid cancer. Reviewed proper use, administration, and side effects. Reviewed expectations for PA process/insurance coverage. Patient plans to commit to changing lifestyle although next month with plan to wait and see what insurance says about the medication. After consultation and careful review of medical history, this patient would benefit from Zepbound based off of the following criteria met: Patient is over the age of 19 with a BMI of 31.99. Additional comorbidities include elevated BP, elevated cholesterol, GERD. Patient has trialed other methods of weight loss including improving diet and exercise without success.This medication is prescribed by or in consultation with a board-certified obesity and weight management physician (Dr. No Alexander or Dr. Janna Alexander). All questions answered to the patient's satisfaction. Patient demonstrates understanding of diagnosis and treatments discussed. Follow-up in 4-weeks, sooner should any questions/concerns arise. Case discussed with collaborating physician Ronnie Alexander who has reviewed the assessment/plan. Chart, medications, labs, and vital signs reviewed. Dictation completed with the use of [employer] voice recognition software, prone to medical misidentifications and grammatical errors. All errors are unintentional. Although the practitioner does try to identify and correct errors, some may be present. Please do not hesitate to contact the practitioner for clarification. 08/03/2024 Diverticulosis (ICD-10 - K57.90) Ernie is a 44-year-old male with a PMH of diverticulosis, GERD that presents new to the practice for weight management follow-up. Reviewed [facility] holistic and medical approach to weight loss with emphasis on lifestyle modification. 08/03/2024: Weight: 222, BMI: 31.85. SECA reviewed, relatively unchanged. The patient is encouraged to partake in modified physical activity as tolerated/permitted given his recent left elbow procedure. Reviewed the importance of adequate protein intake, goal 80 g/day for maintenance of muscle mass/bone health. Is additionally encouraged to continue making health-conscious diet choices and drinking plenty of water. Rx for Zepbound 5 mg SC weekly sent to pharmacy. #Elevated BP: Patient's BP is elevated at 150/78. The patient is encouraged to purchase a home BP And take BP readings while he was relaxed twice daily. Recommending follow-up with his primary care provider should BPs consistently be elevated greater than 140/90. 06/22/2024: Weight: 223, 1: 31.99. Reviewed SECA/goals for implementing sustainable lifestyle changes. Patient is encouraged to increase physical activity, goal 8-10k steps/day. Also discussed the importance of strength training with proper safety/body mechanics for maintenance of muscle mass/bone health. Patient encouraged to drink 60-80oz water/day. Reviewed nutrition, recommending food diary x 1 week to ensure adequate caloric/protein intake. Goal of 100g protein/day. Reviewed risks, benefits, and side effects of weight management medications including phentermine, Topamax, Contrave, metformin, and GLP-1 agonist.Patient contacted his insurance company and states they will cover Zepbound, Rx for Zepbound 2.5 mg SC weekly sent to pharmacy. Patient denies personal/family history of M EN syndrome/medullary thyroid cancer. Reviewed proper use, administration, and side effects. Reviewed expectations for PA process/insurance coverage. Patient plans to commit to changing lifestyle although next month with plan to wait and see what insurance says about the medication. All questions answered to the patient's satisfaction. Patient demonstrates understanding of diagnosis and treatments discussed. Follow-up in 4-weeks, sooner should any questions/concerns arise. Case discussed with collaborating physician Zonia Alexander who has reviewed the assessment/plan. Chart, medications, labs, and vital signs reviewed. Dictation completed with the use of [employer] voice recognition software, prone to medical misidentifications and grammatical errors. All errors are unintentional. Although the practitioner does try to identify and correct errors, some may be present. Please do not hesitate to contact the practitioner for clarification. Total time spent was 25 minutes with >50% on coordination of care and patient education. 08/03/2024 Elevated cholesterol (ICD-10 - E78.00) Ernie is a 44-year-old male with a PMH of diverticulosis, GERD that presents new to the practice for weight management follow-up. Reviewed [facility] holistic and medical approach to weight loss with emphasis on lifestyle modification. 08/03/2024: Weight: 222, BMI: 31.85. SECA reviewed, relatively unchanged. The patient is encouraged to partake in modified physical activity as tolerated/permitted given his recent left elbow procedure. Reviewed the importance of adequate protein intake, goal 80 g/day for maintenance of muscle mass/bone health. Is additionally encouraged to continue making health-conscious diet choices and drinking plenty of water. Rx for Zepbound 5 mg SC weekly sent to pharmacy. #Elevated BP: Patient's BP is elevated at 150/78. The patient is encouraged to purchase a home BP And take BP readings while he was relaxed twice daily. Recommending follow-up with his primary care provider should BPs consistently be elevated greater than 140/90. 06/22/2024: Weight: 223, 1: 31.99. Reviewed SECA/goals for implementing sustainable lifestyle changes. Patient is encouraged to increase physical activity, goal 8-10k steps/day. Also discussed the importance of strength training with proper safety/body mechanics for maintenance of muscle mass/bone health. Patient encouraged to drink 60-80oz water/day. Reviewed nutrition, recommending food diary x 1 week to ensure adequate caloric/protein intake. Goal of 100g protein/day. Reviewed risks, benefits, and side effects of weight management medications including phentermine, Topamax, Contrave, metformin, and GLP-1 agonist.Patient contacted his insurance company and states they will cover Zepbound, Rx for Zepbound 2.5 mg SC weekly sent to pharmacy. Patient denies personal/family history of M EN syndrome/medullary thyroid cancer. Reviewed proper use, administration, and side effects. Reviewed expectations for PA process/insurance coverage. Patient plans to commit to changing lifestyle although next month with plan to wait and see what insurance says about the medication. All questions answered to the patient's satisfaction. Patient demonstrates understanding of diagnosis and treatments discussed. Follow-up in 4-weeks, sooner should any questions/concerns arise. Case discussed with collaborating physician Zonia Alexander who has reviewed the assessment/plan. Chart, medications, labs, and vital signs reviewed. Dictation completed with the use of [employer] voice recognition software, prone to medical misidentifications and grammatical errors. All errors are unintentional. Although the practitioner does try to identify and correct errors, some may be present. Please do not hesitate to contact the practitioner for clarification. Total time spent was 25 minutes with >50% on coordination of care and patient education. 06/22/2024 Elevated cholesterol (ICD-10 - E78.00) Ernie is a 44-year-old male with a PMH of diverticulosis, GERD that presents new to the practice for weight management consult. Patient was reassured and welcomed to the practice. Discussed [facility] holistic and medical approach to weight loss with emphasis on lifestyle modification. Patient is educated that a healthy lifestyle aids in combating obesity as well as reducing the risk of developing obesity-related medical complications including but not limited to diabetes and cardiovascular disease. Detailed education provided about taking steps to initiate sustainable lifestyle changes including incorporating regular physical activity, making healthy diet choices, and prioritizing mental health. Information provided about literature including The Food Rules by Danny Flores and Eat Fat Get Lean by Dr Jama Mahoney. Handouts including lifestyle checklist, protein content of food, low calorie snacks, and cholesterol information sheet provided. Diagnostic testing/ SECA scale offered. Discussed the importance of regular SECA scale measurements to ensure healthy weight loss. 06/22/2024: Weight: 223, 1: 31.99. Reviewed SECA/goals for implementing sustainable lifestyle changes. Patient is encouraged to increase physical activity, goal 8-10k steps/day. Also discussed the importance of strength training with proper safety/body mechanics for maintenance of muscle mass/bone health. Patient encouraged to drink 60-80oz water/day. Reviewed nutrition, recommending food diary x 1 week to ensure adequate caloric/protein intake. Goal of 100g protein/day. Reviewed risks, benefits, and side effects of weight management medications including phentermine, Topamax, Contrave, metformin, and GLP-1 agonist.Patient contacted his insurance company and states they will cover Zepbound, Rx for Zepbound 2.5 mg SC weekly sent to pharmacy. Patient denies personal/family history of M EN syndrome/medullary thyroid cancer. Reviewed proper use, administration, and side effects. Reviewed expectations for PA process/insurance coverage. Patient plans to commit to changing lifestyle although next month with plan to wait and see what insurance says about the medication. After consultation and careful review of medical history, this patient would benefit from Zepbound based off of the following criteria met: Patient is over the age of 19 with a BMI of 31.99. Additional comorbidities include elevated BP, elevated cholesterol, GERD. Patient has trialed other methods of weight loss including improving diet and exercise without success.This medication is prescribed by or in consultation with a board-certified obesity and weight management physician (Dr. No Alexander or Dr. Janna Alexander). All questions answered to the patient's satisfaction. Patient demonstrates understanding of diagnosis and treatments discussed. Follow-up in 4-weeks, sooner should any questions/concerns arise. Case discussed with collaborating physician Ronnie Alexander who has reviewed the assessment/plan. Chart, medications, labs, and vital signs reviewed. Dictation completed with the use of [employer] voice recognition software, prone to medical misidentifications and grammatical errors. All errors are unintentional. Although the practitioner does try to identify and correct errors, some may be present. Please do not hesitate to contact the practitioner for clarification. 06/22/2024 Elevated BP without diagnosis of hypertension (ICD-10 - R03.0) Ernie is a 44-year-old male with a PMH of diverticulosis, GERD that presents new to the practice for weight management consult. Patient was reassured and welcomed to the practice. Discussed [facility] holistic and medical approach to weight loss with emphasis on lifestyle modification. Patient is educated that a healthy lifestyle aids in combating obesity as well as reducing the risk of developing obesity-related medical complications including but not limited to diabetes and cardiovascular disease. Detailed education provided about taking steps to initiate sustainable lifestyle changes including incorporating regular physical activity, making healthy diet choices, and prioritizing mental health. Information provided about literature including The Food Rules by Danny Flores and Eat Fat Get Lean by Dr Jama Mahoney. Handouts including lifestyle checklist, protein content of food, low calorie snacks, and cholesterol information sheet provided. Diagnostic testing/ SECA scale offered. Discussed the importance of regular SECA scale measurements to ensure healthy weight loss. 06/22/2024: Weight: 223, 1: 31.99. Reviewed SECA/goals for implementing sustainable lifestyle changes. Patient is encouraged to increase physical activity, goal 8-10k steps/day. Also discussed the importance of strength training with proper safety/body mechanics for maintenance of muscle mass/bone health. Patient encouraged to drink 60-80oz water/day. Reviewed nutrition, recommending food diary x 1 week to ensure adequate caloric/protein intake. Goal of 100g protein/day. Reviewed risks, benefits, and side effects of weight management medications including phentermine, Topamax, Contrave, metformin, and GLP-1 agonist.Patient contacted his insurance company and states they will cover Zepbound, Rx for Zepbound 2.5 mg SC weekly sent to pharmacy. Patient denies personal/family history of M EN syndrome/medullary thyroid cancer. Reviewed proper use, administration, and side effects. Reviewed expectations for PA process/insurance coverage. Patient plans to commit to changing lifestyle although next month with plan to wait and see what insurance says about the medication. After consultation and careful review of medical history, this patient would benefit from Zepbound based off of the following criteria met: Patient is over the age of 19 with a BMI of 31.99. Additional comorbidities include elevated BP, elevated cholesterol, GERD. Patient has trialed other methods of weight loss including improving diet and exercise without success.This medication is prescribed by or in consultation with a board-certified obesity and weight management physician (Dr. No Alexander or Dr. Janna Alexander). All questions answered to the patient's satisfaction. Patient demonstrates understanding of diagnosis and treatments discussed. Follow-up in 4-weeks, sooner should any questions/concerns arise. Case discussed with collaborating physician Ronnie Alexander who has reviewed the assessment/plan. Chart, medications, labs, and vital signs reviewed. Dictation completed with the use of [employer] voice recognition software, prone to medical misidentifications and grammatical errors. All errors are unintentional. Although the practitioner does try to identify and correct errors, some may be present. Please do not hesitate to contact the practitioner for clarification. 08/03/2024 Elevated BP without diagnosis of hypertension (ICD-10 - R03.0) Ernie is a 44-year-old male with a PMH of diverticulosis, GERD that presents new to the practice for weight management follow-up. Reviewed [facility] holistic and medical approach to weight loss with emphasis on lifestyle modification. 08/03/2024: Weight: 222, BMI: 31.85. SECA reviewed, relatively unchanged. The patient is encouraged to partake in modified physical activity as tolerated/permitted given his recent left elbow procedure. Reviewed the importance of adequate protein intake, goal 80 g/day for maintenance of muscle mass/bone health. Is additionally encouraged to continue making health-conscious diet choices and drinking plenty of water. Rx for Zepbound 5 mg SC weekly sent to pharmacy. #Elevated BP: Patient's BP is elevated at 150/78. The patient is encouraged to purchase a home BP And take BP readings while he was relaxed twice daily. Recommending follow-up with his primary care provider should BPs consistently be elevated greater than 140/90. 06/22/2024: Weight: 223, 1: 31.99. Reviewed SECA/goals for implementing sustainable lifestyle changes. Patient is encouraged to increase physical activity, goal 8-10k steps/day. Also discussed the importance of strength training with proper safety/body mechanics for maintenance of muscle mass/bone health. Patient encouraged to drink 60-80oz water/day. Reviewed nutrition, recommending food diary x 1 week to ensure adequate caloric/protein intake. Goal of 100g protein/day. Reviewed risks, benefits, and side effects of weight management medications including phentermine, Topamax, Contrave, metformin, and GLP-1 agonist.Patient contacted his insurance company and states they will cover Zepbound, Rx for Zepbound 2.5 mg SC weekly sent to pharmacy. Patient denies personal/family history of M EN syndrome/medullary thyroid cancer. Reviewed proper use, administration, and side effects. Reviewed expectations for PA process/insurance coverage. Patient plans to commit to changing lifestyle although next month with plan to wait and see what insurance says about the medication. All questions answered to the patient's satisfaction. Patient demonstrates understanding of diagnosis and treatments discussed. Follow-up in 4-weeks, sooner should any questions/concerns arise. Case discussed with collaborating physician Zonia Alexander who has reviewed the assessment/plan. Chart, medications, labs, and vital signs reviewed. Dictation completed with the use of [employer] voice recognition software, prone to medical misidentifications and grammatical errors. All errors are unintentional. Although the practitioner does try to identify and correct errors, some may be present. Please do not hesitate to contact the practitioner for clarification. Total time spent was 25 minutes with >50% on coordination of care and patient education. 06/22/2024 Nutritional counseling (ICD-10 - Z71.3) Ernie is a 44-year-old male with a PMH of diverticulosis, GERD that presents new to the practice for weight management consult. Patient was reassured and welcomed to the practice. Discussed [facility] holistic and medical approach to weight loss with emphasis on lifestyle modification. Patient is educated that a healthy lifestyle aids in combating obesity as well as reducing the risk of developing obesity-related medical complications including but not limited to diabetes and cardiovascular disease. Detailed education provided about taking steps to initiate sustainable lifestyle changes including incorporating regular physical activity, making healthy diet choices, and prioritizing mental health. Information provided about literature including The Food Rules by Danny Flores and Eat Fat Get Lean by Dr Jama Mahoney. Handouts including lifestyle checklist, protein content of food, low calorie snacks, and cholesterol information sheet provided. Diagnostic testing/ SECA scale offered. Discussed the importance of regular SECA scale measurements to ensure healthy weight loss. 06/22/2024: Weight: 223, 1: 31.99. Reviewed SECA/goals for implementing sustainable lifestyle changes. Patient is encouraged to increase physical activity, goal 8-10k steps/day. Also discussed the importance of strength training with proper safety/body mechanics for maintenance of muscle mass/bone health. Patient encouraged to drink 60-80oz water/day. Reviewed nutrition, recommending food diary x 1 week to ensure adequate caloric/protein intake. Goal of 100g protein/day. Reviewed risks, benefits, and side effects of weight management medications including phentermine, Topamax, Contrave, metformin, and GLP-1 agonist.Patient contacted his insurance company and states they will cover Zepbound, Rx for Zepbound 2.5 mg SC weekly sent to pharmacy. Patient denies personal/family history of M EN syndrome/medullary thyroid cancer. Reviewed proper use, administration, and side effects. Reviewed expectations for PA process/insurance coverage. Patient plans to commit to changing lifestyle although next month with plan to wait and see what insurance says about the medication. After consultation and careful review of medical history, this patient would benefit from Zepbound based off of the following criteria met: Patient is over the age of 19 with a BMI of 31.99. Additional comorbidities include elevated BP, elevated cholesterol, GERD. Patient has trialed other methods of weight loss including improving diet and exercise without success.This medication is prescribed by or in consultation with a board-certified obesity and weight management physician (Dr. No Alexander or Dr. Janna Alexander). All questions answered to the patient's satisfaction. Patient demonstrates understanding of diagnosis and treatments discussed. Follow-up in 4-weeks, sooner should any questions/concerns arise. Case discussed with collaborating physician Ronnie Alexander who has reviewed the assessment/plan. Chart, medications, labs, and vital signs reviewed. Dictation completed with the use of [employer] voice recognition software, prone to medical misidentifications and grammatical errors. All errors are unintentional. Although the practitioner does try to identify and correct errors, some may be present. Please do not hesitate to contact the practitioner for clarification. 08/03/2024 Nutritional counseling (ICD-10 - Z71.3) Ernie is a 44-year-old male with a PMH of diverticulosis, GERD that presents new to the practice for weight management follow-up. Reviewed [facility] holistic and medical approach to weight loss with emphasis on lifestyle modification. 08/03/2024: Weight: 222, BMI: 31.85. SECA reviewed, relatively unchanged. The patient is encouraged to partake in modified physical activity as tolerated/permitted given his recent left elbow procedure. Reviewed the importance of adequate protein intake, goal 80 g/day for maintenance of muscle mass/bone health. Is additionally encouraged to continue making health-conscious diet choices and drinking plenty of water. Rx for Zepbound 5 mg SC weekly sent to pharmacy. #Elevated BP: Patient's BP is elevated at 150/78. The patient is encouraged to purchase a home BP And take BP readings while he was relaxed twice daily. Recommending follow-up with his primary care provider should BPs consistently be elevated greater than 140/90. 06/22/2024: Weight: 223, 1: 31.99. Reviewed SECA/goals for implementing sustainable lifestyle changes. Patient is encouraged to increase physical activity, goal 8-10k steps/day. Also discussed the importance of strength training with proper safety/body mechanics for maintenance of muscle mass/bone health. Patient encouraged to drink 60-80oz water/day. Reviewed nutrition, recommending food diary x 1 week to ensure adequate caloric/protein intake. Goal of 100g protein/day. Reviewed risks, benefits, and side effects of weight management medications including phentermine, Topamax, Contrave, metformin, and GLP-1 agonist.Patient contacted his insurance company and states they will cover Zepbound, Rx for Zepbound 2.5 mg SC weekly sent to pharmacy. Patient denies personal/family history of M EN syndrome/medullary thyroid cancer. Reviewed proper use, administration, and side effects. Reviewed expectations for PA process/insurance coverage. Patient plans to commit to changing lifestyle although next month with plan to wait and see what insurance says about the medication. All questions answered to the patient's satisfaction. Patient demonstrates understanding of diagnosis and treatments discussed. Follow-up in 4-weeks, sooner should any questions/concerns arise. Case discussed with collaborating physician Zonia Alexander who has reviewed the assessment/plan. Chart, medications, labs, and vital signs reviewed. Dictation completed with the use of [employer] voice recognition software, prone to medical misidentifications and grammatical errors. All errors are unintentional. Although the practitioner does try to identify and correct errors, some may be present. Please do not hesitate to contact the practitioner for clarification. Total time spent was 25 minutes with >50% on coordination of care and patient education. PLAN OF TREATMENT Pending Test Test Name Order Date CBC (COMPLETE BLOOD COUNT) WITH DIFF 10/2023 COMPREHENSIVE METABOLIC PANEL 06/22/2024 HEMOGLOBIN A1C 06/22/2024 LIPID PANEL 06/22/2024 TSH WITH REFLEX TO FT4 06/22/2024 Next Appt Details Provider Name:LIS Jiménez, 09/07/2024 09:30:00 AM, [address] [facility], [facility] [address], [place], [address], Insurance Providers Payer Name Payer Address Payer Phone Subscriber Number Group Number Insured Name Patient Relationship to Insured Coverage Start Date Coverage End Date [employer] [facility] [address] [place] [address] [phone] [id number] Ernie Akers Self - patient is the insured MEDICAL (GENERAL) HISTORY Medical History History ICD Code Arthritis seasonal allergies diverticulosis Surgical History Surgery Date(Month/Year) Left elbow - clean out 07/22/24
--- OUTSIDE RECORDS SUMMARY | 2024-09-05 07:31 | XMS_ITS ---
Author Organization [facility] Address [address] [place] [address] Care Team Providers Care Garage Door Service Technician Name Role Phone GLENN BOSTON Primary Care Provider UnavailSOFIA Cook Unavailable [phone] LIS VENEGAS Unavailable [phone] Encounters Encounter Location Date Provider Diagnosis [address] [place] [address] 07/26/2024 LIS VENEGAS PLAN OF TREATMENT Next Appt Details Provider Name:LIS Jiménez, 09/07/2024 09:30:00 AM, [address], [address], [place], [address], Progress Notes * Ernie AKERSDOB:1980 (44 yo M)Acc No.[id number]:07/26/2024 Patient:??Ernie AKERS Provider:??LIS VENEGAS PA-C :1980?Age:44 Y?Sex:Genesis roberts Date:07/26/2024 Address:[facility] [id number] Pcp:GLENN BOSTON Subjective: * Chief Complaints: * ? * Medical History:?? Objective: Assessment: Plan: * Treatment: * Images: Billing Information: * Visit Code:?? * Procedure Codes:?? * Sign off status: Pending * Provider:??LIS VENEGAS PA-C Date:?? 07/26/2024
--- OUTSIDE RECORDS SUMMARY | 2024-09-05 07:31 | XMS_ITS | Continuity of Care Document ---
Author Name [facility] Organization [facility] Care Team Providers Care Verse Writer Name Role Phone [facility] Unavailable Unavailable Problems Combined list of problems from [facility] and [facility] facilities. It does not include entries that were removed or entered in error. Problem Status Onset Date Problem Type Date of Resolution Comments Source Heartburn * (ICD-9-CM 787.1) Active 09/21/2011 Condition [facility] Adjustment disorder Active Condition [facility] NOS-UNSPEC Active Condition [facility] Seizure * (ICD-9-CM 780.39) Active Condition [facility] Medications Combined list of outpatient medications from [facility] and [facility] facilities.Medications provided include 1) outpatient medications from the last 15 months, and 2) patient-reported medications. Medication Details Route Status Patient Instructions Prescription Expires Prescription Number Last Dispense Date Ordering Provider Order Date Order Qty Source IBUPROFEN 800MG TAB TAKE ONE TABLET BY MOUTH THREE TIMES A DAY ORAL ACTIVE ONEYSSI,I SSAM A 2019 [facility] Allergies, Adverse Reactions, Alerts Combined list of allergies from [facility] and [facility] facilities. It does not include entries that were removed or entered in error. Substance Category Reaction Severity Reaction type Status Date Reported Comments Source SULFUR Propensity to adverse reactions to drug (finding) ITCHING,W ATERING EYES active 2 [facility] Immunizations Combined list of available immunizations from the [facility] and [facility] facilities. Immunization Series Date Given Administered By Site Reaction Lot Number CVX Code Drug Finisher Polisher Status Comments Source COVID-19 (Tribesports), MRNA, LNP-S, PF, 30 MCG/0.3 ML DOSE 2 2020 208 complet ed PFR; [id number]; 1 [facility] [place] COVID-19 (PFIZER), MRNA, LNP-S, PF, 30 MCG/0.3 ML DOSE 1 2020 208 complet ed PFR; [id number]; 1 [facility] DTAP, UNSPECIFIED FORMULATION 2011 107 complet ed Site: Left Deltoid [facility] FLU,3 YRS (HISTORICAL) 2011 88 complet ed Site: Left Deltoid [facility] TD(ADULT) UNSPECIFIED FORMULATION 2005 NONE 139 complet ed [facility] Social History Combined list of available smoking, tobacco, and other social history from [facility] of Defense and Veterans [facility] facilities. Social History Type Response Date Comment Source Tobacco smoking status [facility] LIF[facility] NON-TOBACCO USER 09/05/2013 [facility] [place] [facility] History of tobacco use QUIT TOBACCO USE 1-7 YEARS AGO 05/28/2012 [facility] [place] [facility] History of tobacco use QUIT TOBACCO USE 1-7 YEARS AGO 02/04/2011 [facility] [place] [facility] History of tobacco use QUIT TOBACCO USE IN PAST YEAR 01/06/2006 [facility] [place] [facility] History of tobacco use CURRENT SMOKER 01/31/2003 1/2 ppd x 5 years [facility] [place] [facility] History of tobacco use CURRENT SMOKER 06/09/2002 [facility] [place] [facility]
--- OUTSIDE RECORDS SUMMARY | 2024-09-05 07:31 | XMS_ITS ---
Author Organization [facility] Address [address] [place] [address] Care Team Providers Care Mental Retardation Aide Name Role Phone GLENN BOSTON Primary Care Provider Unavailab SOFIA Garcia Unavailable [phone] LIS VENEGAS Unavailable [phone] ALLERGIES Allergen (clinical drug ingredient) Drug/Non Drug Allergy documented on EMR Reaction Allergy Type Onset Date Status Substance with sulfonamide structure and antibacterial mechanism of action (substance) Sulfa Antibiotics Unknown Drug Allergy Active MEDICATIONS Medication SIG (Take, Route, Fr equency, [...] W/U Status Risk SNOMED Code Notes Problem BMI 31.0-31.9,ad ult (Z68.31) Active confirmed [id number] VITAL SIGNS Heart Rate 63 /min 08/03/2024 Blood pressure systolic 150 mm Hg 08/03/20 24 Blood pressure diastolic 78 mm Hg 024 Weight 222 lbs 08/03/2024 BMI 31.85 kg/m2 08/03/2024 Height 70 in 08/03/2024 Oximetry 99 % 08/03/2024 Encounters Encounter Location Date Provider Diagnosis [address] [address] 08/03/2024 ILS VENEGAS Obesity (BMI 30-39.9 ) E66.9 ; BMI 31.0-31.9,adult Z68.31 ; Gastroesophageal reflux disease, unspecified whether esophagitis present K21.9 ; Diverticulosis K57.90 ; Elevated cholesterol E78.00 ; Elevated BP without diagnosis of hypertension R03.0 and Nutritional counseling Z71.3 ASSESSMENTS Encounter Date Diagnosis Assessment Notes Treatment Notes Treatment Clinical Notes Section Notes 08/03/2024 Obesity (BMI 30-39.9) (ICD-10 - E66.9) [...] reviewed. Dictation completed with the use of [employer] voice recognition software, prone to medical misidentifications and grammatical errors. All errors are unintentional. Although the practitioner does try to identify and correct errors, some may be present. Please do not hesitate to contact the practitioner for clarification. Total time spent was 25 minutes with >50% on coordination of care and patient education. 08/03/2024 BMI 31.0-31.9,adult (ICD-10 - Z68.31) Ernie is a 44-year-old male with a [...] reviewed. Dictation completed with the use of [employer] voice recognition software, prone to medical misidentifications [...] reviewed. Dictation completed with the use of [employer] voice recognition software, prone to medical misidentifications and grammatical errors. All errors are unintentional. Although the practitioner does try to identify and correct errors, some may be present. Please do not hesitate to contact the practitioner for clarification. Total time spent was 25 minutes with >50% on coordination of care and patient education. 08/03/2024 Diverticulosis (ICD-10 - K57.90) Ernie is [...] reviewed. Dictation completed with the use of [employer] voice recognition software, prone to medical misidentifications [...] reviewed. Dictation completed with the use of [employer] voice recognition software, prone to medical misidentifications and grammatical errors. All errors are unintentional. Although the practitioner does try to identify and correct errors, some may be present. Please do not hesitate to contact the practitioner for clarification. Total time spent was 25 minutes with >50% on coordination of care and patient education. 08/03/2024 Elevated BP without diagnosis of hypertension [...] reviewed. Dictation completed with the use of [employer] voice recognition software, prone to medical misidentifications and grammatical errors. All errors are unintentional. Although the practitioner does try to identify and correct errors, some may be present. Please do not hesitate to contact the practitioner for clarification. Total time spent was 25 minutes with >50% on coordination of care and patient education. 08/03/2024 Nutritional counseling (ICD-10 - Z71.3) Ernie [...] reviewed. Dictation completed with the use of [employer] voice recognition software, prone to medical misidentifications and grammatical errors. All errors are unintentional. Although the practitioner does try to identify and correct errors, some may be present. Please do not hesitate to contact the practitioner for clarification. Total time spent was 25 minutes with >50% on coordination of care and patient education. PLAN OF TREATMENT Medication Medication Name Sig Start Date Stop Date Notes Zepbound 5 MG/0.5ML Inject 5mg Subcutane ous weekly for 30 days Next Appt Details Provider Name:LIS Jiménez, 09/07/2024 09:30:00 AM, [address] [place] [address], [address], Progress Notes * Ernie AKERSDOB:1980 (44 yo M)Acc No.[id number]:08/03/2024 Patient:??AKERS, Ernie Provider:??LIS VENEGAS PA-C :1980?Age:44 Y?Sex:Genesis le Date:08/03/2024 Address:[address] [place] [address] [id number] Pcp:GLENN BOSTON Subjective: * Chief Complaints: * ? * HPI: ?Constitutional:? Ernie is a 44-year-old male with a PMH of GERD and diverticulosis that presents for weight management follow-up. Currently taking Zepbound 2.5 mg SC weekly with compliance. Patient underwent surgery on his left elbow 07/22/2024 and started the medication shortly after. As a result he is only taking 2 doses. Feels it is suppressing appetite well, states portion control is easier since starting the medication. Denies the presence of side effects including nausea, vomiting, or constipation. Physical activity is limited given his recent surgery. Dates he has been prioritizing protein intake. Drinks a protein drink for breakfast and has a couple of hard-boiled eggs. Lunch is typically a factor meal. Dinner varies but he tries to prioritize eating protein and a veggie. Feels water intake is adequate, drinks lemon water from a 20 ounce cup, which he fell several times throughout the day. * ROS:?Constitutional: Denies sudden weight loss, fever, night sweats, excessive fatigue, or changes in sleep. ???CV: Denies chest pain or heart palpitations. ???Respiratory: Denies SOB, wheezing, or pleuritic pain. ???GI: Denies n/v/d, constipation, blood in stools, pain associated with eating, indigestion, or difficulty/pain with swallowing. ???MSK: Denies back pain, joint deformity/pain, or muscle weakness. ???Integumentary: Denies skin changes. ???Endocrine: Denies polyuria, polyphagia, or polydipsia. No heat/cold intolerance or excessive thirst. * Medical History:??Arthritis, Seasonal allergies, Diverticulosis. * Surgical History:??Left elbo w - clean out 07/22/24. * Hospitalization/Major Diagno stic Procedure:??Denies Past Hospitalization. * Family History:??Father: ali ve.??Mother: alive.??2 brother(s) , 1 sister(s) - healthy. 2 son(s) - healthy. .?? sister passed from Gleoblastoma. * Medications:??Taking OxyCONT IN 10 MG Tablet ER 12 Hour Abuse-Deterrent 1 tablet Orally every 12 hrs , Taking Advil 200 MG Tablet 1 tablet with food or milk as needed Orally Three times a day , Taking Omeprazole 40 MG Capsule Delayed Release 1 capsule 1/2 to 1 hour before morning meal Orally Once a day , Taking Zepbound 2.5 MG/0.5ML Solution Auto-injector Inject 2.5mg Subcutaneous weekly * Allergies:??Sulfa Antibiotic s: Allergy. Objective: * Vitals:??HR:63/min, BP:150/7 8mm Hg, Wt:222lbs, BMI:31.85Index, Ht: 70 in, Oxygen sat %:99%. * Physical Examination:?General: Age appropriate, well-appearing 44-year-old male in no acute distress, speaking in full sentences without respiratory compromise. Well groomed, well developed. Alert, interactive. ?Skin: Warm, dry and intact. No lesions/rashes/erythema. ?HEENT: Normocephalic/atraumatic. ?Lungs: Clear to auscultation bilaterally. ?CV: RRR. ?Neuro: CN II-XII grossly intact. Steady gait with non-assisted ambulation observed. ?Psych: Stable mood and affect. Assessment: * Assessment: 1.??Obesity (BMI 30-39.9) - E66.9 (Primary)??2.??BMI 31.0-31.9,adult - Z68.31??3.??Gastroesophageal reflux disease, unspecified whether esophagitis present - K21.9??4.??Diverticulosis - K57.90??5.??Elevated cholesterol - E78.00??6.??Elevated BP without diagnosis of hypertension - R03.0??7.??Nutritional counseling - Z71.3?? Ernie is a 44-year-old male w ith a PMH of diverticulosis, GERD that presents [...] is encouraged to increase physical activity, goal 8- 10k steps/day. Also discussed the importance of strength [...] reviewed. Dictation completed with the use of [employer] voice recognition software, prone to medical misidentifications and grammatical errors. All errors are unintentional. Although the practitioner does try to identify and correct errors, some may be present. Please do not hesitate to contact the practitioner for clarification. Total time spent was 25 minutes with >50% on coordination of care and patient education. Plan: * Treatment: * Procedure Codes:??G0447 FCE- FCE BEHAVRL CNSL OBESITY 15 MIN, Modifiers: 59 * Images: Billing Information: * Visit Code:?? 33918 Office Visit, Est Pt., Level 4. * Procedure Codes:?? G0447 FCE-FCE BEHAVRL CNSL OBESITY 15 MIN. Modifiers: 59 * Sign off status: Completed true * Provider:??LIS VENEGAS PA-C Date:?? 08/03/2024 History and Physical Notes * HPI (History of Present Illness) Category Sub-Category Detail Notes Category Not es Constitutional Ernie is a 44- year-old male with a PMH of GERD and diverticulosis that presents for weight management follow-up. Currently taking Zepbound 2.5 mg SC weekly with compliance. Patient underwent surgery on his left elbow 07/22/2024 and started the medication shortly after. As a result he is only taking 2 doses. Feels it is suppressing appetite well, states portion control is easier since starting the medication. Denies the presence of side effects including nausea, vomiting, or constipation. Physical activity is limited given his recent surgery. Dates he has been prioritizing protein intake. Drinks a protein drink for breakfast and has a couple of hard-boiled eggs. Lunch is typically a factor meal. Dinner varies but he tries to prioritize eating protein and a veggie. Feels water intake is adequate, drinks lemon water from a 20 ounce cup, which he fell several times throughout the day. Physical Examination Category Sub-Category Detail Notes Section Note s General: Age appropriate, well-appearing 44-year-old male in no acute distress, speaking in full sentences without respiratory compromise. Well groomed, well developed. Alert, interactive. Skin: Warm, dry and intact. No lesions/rashes/erythema. HEENT: Normocephalic/atraumatic. Lungs: Clear to auscultation bilaterally. CV: RRR. Neuro: CN II-XII grossly intact. Steady gait with non-assisted ambulation observed. Psych: Stable mood and affect.
[2024-09-05 07:41] LABS: MANUAL DIFF FLAG NO
[2024-09-05 08:32] LABS: Basophils Percent Auto 0.5 % (0-2); Eosinophils Absolute Auto 0.1 X10*3/uL (0.0-0.4); Eosinophils Percent Auto 1.7 % (0-4); Hematocrit 44.3 % (42.0-52.0); Hemoglobin 14.9 g/dl (14.0-18.0); Imm Gran Abs Auto 0.02 X10*3/uL (0.00-0.03); Imm Gran Pct Auto 0.3 % (0.0-0.4); Lymphocytes Absolute Auto 1.8 X10*3/uL (1.2-4.9); Lymphocytes Percent Auto 28.6 % (20-40); Mean Corpuscular HGB Conc 33.6 g/dl (31.0-36.0); Mean Corpuscular Hemoglobin 30.3 pg (27.0-33.0); Mean Platelet Volume 10.6 fL (9.4-12.4); Monocytes Absolute Auto 0.4 X10*3/uL (0.1-1.2); Neutrophils Absolute Auto 3.9 x10*3/uL (2.0-8.3); Neutrophils Percent Auto 61.9 % (45-73); Platelet Count 223 X10*3/uL (160-400); Red Blood Count 4.92 X10*6/uL (4.60-5.80); Red Cell Distribution Width 12.2 % (11.0-16.0); White Blood Count 6.3 X10*3/uL (4.8-10.8)
[2024-09-05 08:51] LABS: Estimated Average Glucose 91 mg/dL; Hemoglobin A1C 109.0327 umol/L; Hemoglobin A1c % 4.8 % (<6.0); Total Hemoglobin (HGBA1C) 3810.9488 umol/L
[2024-09-05 08:56] LABS: Alanine Aminotransferase 30 U/L (0-40); Albumin Level 4.5 g/dL (3.5-5.0); Alkaline Phosphatase 47 U/L (39-117); Anion Gap 13 (12-20); Aspartate Amino Transferase 47 U/L (5-37); Bilirubin Total 0.5 mg/dL (0.0-1.0); Blood Urea Nitrogen 20 mg/dL (9-16); Calcium 9.8 mg/dL (8.4-10.2); Carbon Dioxide 26 mmol/L (22-29); Chloride 105 mmol/L (96-108); Cholesterol 192 mg/dL (<200); Estimated Glomerular Filt Rate > 60; Glucose Random 88 mg/dL (60-115); HDL Cholesterol 38 mg/dL (>40); LDL Cholesterol Calculated 125 mg/dL (<100); Potassium 4.2 mmol/L (3.3-5.1); Sodium 140 mmol/L (135-145); Total Protein 7.5 g/dL (6.5-8.0); Triglycerides 147 mg/dL (<150)
[2024-09-05 09:11] LABS: TSH reflex Free T4 2.07 uIU/mL (0.32-4.0)
== END 2024-09-05 07:28 | disposition home or self-care (01) ==
LOC: HO.LAB 07:27
PROVIDERS: PCP Physician Assistant
DX: Z00.00 Encounter for general adult medical examination without abnormal findings (principal); Z13.29 Encounter for screening for other suspected endocrine disorder; Z13.1 Encounter for screening for diabetes mellitus; Z13.220 Encounter for screening for lipoid disorders
CPT/HCPCS: 36415; 80053; 80061; 83036; 84443; 85025

== ENCOUNTER 2025-02-15 15:56 | Outpatient (AMB) | payer BC, SELFPAY ==
--- NOTE | 2025-02-15 16:11 | A.OFFPC_ITS ---
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 Operator Required: No Accompanied by: Self / Same As Patient Allergies Sulfa (Sulfonamide Antibiotics) [SULFA (SULFONAMIDE ANTIBIOTICS)] Allergy (Unknown, Verified 02/15/25 16:26) UNKNOWN, hives Medication List - Last Reconciled 02/15/25 by Ben Ashley PA-C blood pressure test kit-large As directed docusate sodium (Colace) 100 mg PO DAILY 15 days multivitamin 1 tab PO DAILY omeprazole 40 mg PO DAILY 30 days oxycodone 10 mg PO Q8H PRN 7 days tirzepatide (weight loss) (Zepbound) mg subcut Tobacco use date assessed: 02/15/25 Dental Screening Dental Screen Date: 02/15/25 Did you have a dental visit in the last 12 months?: Yes Did you have a dental problem in the last 6 months where you did not have access to dental care?: No Was dental information given to patient?: Patient has dentist HPI annual exam HPI Details Patient is a 45 male here today for a routine annual physical. Patient has a past medical history significant for GERD, hypertension, diverticulitis with perforated bowel. .. History of Diverticulitis with perforation: Has a history of diverticulitis with perforated bowel. He was recommended to have colon resection surgery by [place] [facility] though got a 2nd opinion at [facility] and has not had surgery to date. He has been modifying his diet and has lost lot of weight on GLP 1. He has recently got a colonoscopy got [facility] which showed--- >Moderate diverticulosis in the sigmoid colon. There was evidence of diverticular spasm in. Diverticular erythema was seen. PLAN: Plan for now would be to continue high-fiber diet in treat diverticulitis flares accordingly. .. History of Obesity: Has been on GLP 1 and has lost a significant amount of weight. BMI remains above 30, did note elevated liver enzymes does admit to some increased alcohol intake over the last few years. He has started a new diet and has lost some weight since last office visit. Recent ultrasound of abdomen does show signs symptoms consistent with fatty liver. .. Obesity: Patient now followed by a local weight loss clinic in his on Zepbound. Has lost significant amount of weight on Zepbound along with his better eating habits and more physical activity in his life. He is feeling much better and is beginning to wean off of GLP 1. .. GERD: Continues omeprazole 40 mg. He has changed his diet significantly and wonders if he can reduce his dose of this medication and try to get off of PPI therapy. [facility] Medical History (Updated 02/18/25 @ 16:04 by Ben Ashley PA-C) Sprain of left elbow Surgical History H/O vasectomy Family History Sister Glioblastoma Social History Household Members: Spouse and Children Housing: House Alcohol intake: current Alcohol intake frequency: a few times a week Alcohol type: beer and wine Patient Tobacco Use Status: Never used Tobacco Tobacco use type: Cigarette e-Cigarette/Vaping Use: Never Used Second Hand Smoke Exposure: No Substance Use Type: Marijuana service: No Current occupational status: employed Current occupation: [employer] Cognitive needs: No Hearing needs: No Vision needs: No Questionnaire PHQ-9 Over the last 2 weeks, how often have you been bothered by any of the following problems? 1. Little interest or pleasure in doing things: not at all 2. Feeling down, depressed, or hopeless: not at all 3. Trouble falling or staying asleep, or sleeping too much: several days 4. Feeling tired or having little energy: not at all 5. Poor appetite or overeating: not at all 6. Feeling bad about yourself - or that you are a failure or have let yourself or your family down: not at all 7. Trouble concentrating on things, such as reading the newspaper or watching television: not at all 8. Moving or speaking so slowly that other people could have noticed. Or the opp osite - being so fidgety or restless that you have been moving around a lot more than usual: not at all 9. Thoughts that you would be better off or of hurting yourself in some way: not at all Total score: 1 Depression Screening Interpretation: Negative Depression Screening Done: Yes 89489 - PHQ-9 Billing: Yes Source: Developed by Drs. Felipe Coleman, Clarissa Palacios, Celestino Michael and colleagues, with an educational mary from [employer]. Thrive Questionnaire Date Thrive assessed: 02/15/25 I am a: Patient What is your living situation today?: I have a steady place to live Within the past 12 months, did the food you bought not last and you didn't have the money to get more?: Never true Within the past 12 months, did you worry whether your food would run out before you got money to buy more?: Never true Do you have trouble paying for medicines?: No Do you have trouble getting transportation to medical appointments?: No Do you have trouble paying your heating and electricity bill?: No Do you have trouble taking care of your child, family member or friend?: No Do you have trouble with day-to-day activities such as bathing, preparing meals, shopping, managing finances, etc.?: No Are you currently unemployed and looking for a job?: No Are you interested in more education?: No Please select the resources that you would like help with: None Currently or been in a relationship where the following occur: No concerns reported THRIVE Score: 0 AUDIT C Alcohol Use Questionnaire (AUDIT-C) 1. How often do you have a drink containing alcohol?: 2-3 times a week 2. How many drinks containing alcohol do you have on a typical day when you are drinking?: 3 or 4 3. How often do you have six or more drinks on one occasion?: Less than monthly Total Score: 5 DEYVI-7 AMB Questionnaire DEYVI-7 Date DEYVI - 7 assessed: 02/15/25 Feeling nervous, anxious, or on edge: 0 = Not at all Not being able to stop or control worryin = Not at all Worrying too much about different things: 0 = Not at all Trouble relaxin = Several days Being so restless that it is hard to sit still: 1 = Several days Becoming easily annoyed or irritable: 0 = Not at all Feeling afraid as if something awful might happen: 0 = Not at all Total DEYVI-7 score (0-4 normal; 5-9 mild; 10-14 moderate; 15-21 severe): 2 Source: Developed by Drs. Felipe Coleman, Clarissa Palacios, Celestino Michael and colleagues, with an educational mary from [employer]. DEYVI-7 Assessment Billing DEYVI-7 Assessment Tool: DEYVI-7 Assessment 92872 Review of Systems Const Denies body aches, Denies chills, Denies excessive sweating, Denies fatigue, Denies fever(s) and Denies headache(s) Eyes Denies blurry vision ENT Denies dysphagia, Denies vertigo, Denies dizziness, Denies headache(s), Denies hearing loss and Denies tinnitus Card Denies chest pain, Denies chest pain with activity, Denies syncope, Denies irregular heart rhythm and Denies dyspnea Resp Denies chest congestion, Denies cough, Denies hemoptysis, Denies dyspnea and Denies wheezing GI Denies abdominal pain, Denies melena, Denies hematochezia, Denies coffee ground emesis, Denies dysphagia, Denies diarrhea, Denies nausea and Denies vomiting Denies difficulty urinating, Denies dysuria, Denies urinary frequency, Denies urinary hesitancy and Denies urinary urgency Musc Denies arthralgias, Denies limited range of motion, Denies muscle cramps and Denies muscle weakness Skin/Breast Denies rash and Denies skin ulcer Neuro Denies Abnormal speech present, Denies confusion, Denies vertigo, Denies dizziness, Denies syncope, Denies headache(s), Denies memory loss and Denies seizure-like activity Psych Denies anxiety, Denies confusion, Denies depression, Denies memory loss, Denies panic attacks and Denies paranoia Endo Denies excessive sweating, Denies fatigue, Denies flushing, Denies polydipsia and Denies polyuria Aller/Immun Denies wheezing Physical exam (Primary Care) Vital Signs: Last Vital Signs Temp 97.3 F 02/15/25 16:16 Pulse 76 02/15/25 16:16 BP 130/80 02/15/25 16:16 Pulse Ox 97 02/15/25 16:16 Oxygen Delivery Method Room Air 02/15/25 16:16 BMI result Body Mass Index 25.3 Tobacco/Smoking Status: Tobacco use Status Tobacco use date assessed 02/15/25 02/15/25 16:19 Patient Tobacco Use Status Never used Tobacco 02/15/25 16:15 Tobacco use type Cigarette 02/15/25 16:15 e-Cigarette/Vaping Use Never Used 02/15/25 16:15 PHQ-9: PHQ-9 Score PHQ-9: Total score 1 02/15/25 16:28 Depression Screening Interpretation: Negative Thrive Assessment: Date of Thrive Assessment Date Thrive assessed 02/15/25 02/15/25 16:15 Currently or been in a relationship where the following occur: No concerns reported Const General: cooperative, comfortable, no acute distress, alert and awake; No confusion Orientation/consciousness: oriented to person, oriented to place, patient oriented x3 and No confusion HENMT Head: Yes normocephalic Ears: external ears normal and TM's normal bilaterally Face and sinus: No sinus tenderness Mouth: Normal oral and palatal mucosa present and tongue normal Teeth and gingiva: dentition normal and gingiva normal Throat: Yes posterior oropharynx normal, Yes tonsils normal and Yes uvula midline Eyes Conjunctivae: conjunctivae normal Sclerae: sclerae normal Pupils: Equal, round and reactive pupils present EOM: EOMs intact bilaterally Direct Ophthalmoscopy: No no photophobia Neck Neck: Yes no lymphadenopathy, No tender and Yes no JVD Thyroid: Thyroid normal Carotids: no bruits Chest Chest palpation & inspection: no tenderness Resp Effort & Inspection: normal respiratory effort, no audible wheezes, not labored and no stridor Auscultation: no crackles, no rales, no rhonchi and no wheezes Cardio Jugular venous distension: no JVD Rate: regular rate, not bradycardic and not tachycardic Rhythm: regular rhythm Bruits: no carotid bruits Peripheral pulses: Peripheral pulses 2+ throughout GI Inspection: Yes normal to inspection, No abdominal wall ecchymosis and No visible herniation Palpation (GI): Soft to palpation, nontender, no guarding, not rigid and No hepatosplenomegaly present Auscultation: normoactive bowel sounds General: Yes no CVA tenderness Back/Spine/Pelvis Back: no CVA tenderness and No back tenderness Cervical Spine: cervical ROM normal Thoracic/Lumbar Spine: thoracic and lumbar spine normal to inspection, straight leg raise negative bilaterally, No thoraco-lumbar ROM limited and No lumbar spinal tenderness Skin Lesions: no lesions Rashes: no rashes Wounds: no wounds Neuro General: oriented to person, oriented to place, patient oriented x3, CN's II-XI intact bilaterally and No confusion Cranial nerves: Yes Equal, round and reactive pupils present and Yes Normal accommodation reflex present Cognition (Neuro): normal cognition Speech: No Abnormal speech present Gait exam (Neuro): Normal gait present Motor exam (neuro): 5/5 motor strength present throughout Extrem Right upper extremity: full ROM; no cyanosis Left upper extremity: full ROM; no cyanosis Right lower extremity: no edema Left lower extremity: no edema Psych Appearance: grossly normal Mental Status: mental status grossly normal Affect: normal affect Attitude: cooperative Thought process: Normal thought process present Coding Level of Care Code Est Pt Prev Care 40-64y(67332) Diagnoses Annual physical exam Z00.00 Gastroesophageal reflux disease without esophagitis K21.9 Esophagitis presence: without esophagitis Diverticulitis K57.92 Additional Codes DEYVI-7 Assessment Billing - DEYVI-7 Assessment Tool: DEYVI-7 Assessment [id number] ([id number]) PHQ-9 - 77973 - PHQ-9 Billing: Yes ([id number]) Assessment & Plan Assessment & Plan (1) Annual physical exam: Code(s): Z00.00 - Encounter for general adult medical examination without abnormal findings Category: Medical Plan: As per HPI (2) GERD (gastroesophageal reflux disease): Code(s): K21.9 - Gastro-esophageal reflux disease without esophagitis Category: Medical Qualifiers: Esophagitis presence: without esophagitis Qualified Code(s): K21.9 - Gastro-esophageal reflux disease without esophagitis Plan: Patient continues to have GERD symptoms without medication. He reports no symptoms while taking omeprazole. (3) Diverticulitis: Code(s): K57.92 - Diverticulitis of intestine, part unspecified, without perforation or abscess without bleeding Category: Medical Plan: Patient has a history of diverticulitis with perforation , was recommend surgery at [facility] surgeon. He has seen Nolvia and did get CT abdomen and pelvis and a recent colonoscopy which did not show any abscess formation. For now will treat diverticulitis flares accordingly and will consider colon resection surgery in the future if absolutely necessary. Orders: Orders Comprehensive Ramer. Panel Fast 02/15/25 R03.0 - Elevated blood-pressure reading, without diagnosis of hypertension Hemoglobin A1c 02/15/25 R03.0 - Elevated blood-pressure reading, without diagnosis of hypertension Complete Blood Count no Diff 02/15/25 R03.0 - Elevated blood-pressure reading, without diagnosis of hypertension Lipid Panel 02/15/25 K76.0 - Fatty (change of) liver, not elsewhere classified
--- OUTSIDE RECORDS SUMMARY | 2025-02-15 16:13 | XMS_ITS | Continuity of Care Document ---
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 It does not include entries that were removed or entered in error. Problem Status Onset Date Problem Type Date of Resolution Comments Source Heartburn * (ICD-9-CM 787.1) Active 09/21/2011 Condition [facility] Adjustment disorder Active Condition [facility] OSTEO[facility] NOS-UNSPEC Active Condition [facility] Seizure * (ICD-9-CM 780.39) Active Condition [facility] Medications Combined list of outpatient medications from [facility] and [facility] facilities.Medications provided include 1) outpatient medications from the last 15 months, and 2) patient-reported medications. Medication Details Route Status Patient Instructions Prescription Expires Prescription Number Last Dispense Date Ordering Provider Order Date Order Qty Source IBUPROFEN 800MG TAB TAKE ONE TABLET BY MOUTH THREE TIMES A DAY ORAL ACTIVE ONEYSSI,I SSAM A 2019 [facility] Allergies, Adverse Reactions, Alerts Combined list of allergies from [facility] facilities. It does not include entries that were removed or entered in error. Substance Category Reaction Severity Reaction type Status Date Reported Comments Source SULFUR Propensity to adverse reactions to drug (finding) ITCHING,W ATERING EYES active 2 [facility] Immunizations Combined list of available immunizations from the [facility] and [facility] facilities. Immunization Series Date Given Administered By Site Reaction Lot Number [id number] Code Drug Director Of Sustainability Programs Status Comments Source COVID-19 (CureDM), MRNA, LNP-S, PF, 30 MCG/0.3 ML DOSE 2 2020 208 complet ed PFR; [id number]; 1 [facility] COVID-19 (PFIZER), MRNA, LNP-S, PF, 30 MCG/0.3 ML DOSE 1 2020 208 complet ed PFR; [id number]; 1 [facility] DTAP, UNSPECIFIED FORMULATION 2011 107 complet ed Site: Left Deltoid [facility] FLU,3 YRS (HISTORICAL) 2011 88 complet ed Site: Left Deltoid [facility] TD(ADULT) UNSPECIFIED FORMULATION 2005 NONE 139 complet ed Booster for Series, [facility] Social History Combined list of available smoking, tobacco, and other social history from [facility] and [facility] facilities. Social History Type Response Date Comment Source Tobacco smoking status [facility] LIFETIME NON-TOBACCO USER 09/05/2013 [facility] [facility] History of tobacco use QUIT TOBACCO USE 1-7 YEARS AGO 05/28/2012 [facility] [place] [facility] History of tobacco use QUIT TOBACCO USE 1-7 YEARS AGO 02/04/2011 [facility] [place] [facility] History of tobacco use QUIT TOBACCO USE IN PAST YEAR 01/06/2006 [facility] [place] [facility] History of tobacco use CURRENT SMOKER 01/31/2003 1/2 ppd x 5 years [facility] [place] [facility] History of tobacco use CURRENT SMOKER 06/09/2002 [facility] [place] [facility]
[2025-02-15 16:16] VITALS: BP 130/80; PULSE 76; TEMP 36.3; O2SAT 97; BMI 25.3
== END 2025-02-15 16:44 | disposition home or self-care (01) ==
LOC: HO.HMCH 15:57
PROVIDERS: PCP Physician Assistant; Visit Provider Physician Assistant
DX: Z00.00 Encounter for general adult medical examination without abnormal findings (principal); K21.9 Gastro-esophageal reflux disease without esophagitis; K57.92 Diverticulitis of intestine, part unspecified, without perforation or abscess without bleeding

== ENCOUNTER → 2025-02-15 15:56 | Outpatient (BNVA) | payer BC, SELFPAY | PROVIDERS: PCP Physician Assistant; Visit Provider Physician Assistant | DX: Z00.00 Encounter for general adult medical examination without abnormal findings (principal); K21.9 Gastro-esophageal reflux disease without esophagitis; K57.92 Diverticulitis of intestine, part unspecified, without perforation or abscess without bleeding; Z79.899 Other long term (current) drug therapy; Z13.30 Encounter for screening examination for mental health and behavioral disorders, unspecified; Z13.31 Encounter for screening for depression | CPT/HCPCS: 96127 ==